=== PATIENT | female | born 1950 | race Caucasian/White ===

== ENCOUNTER 2018-07-03 06:09 | Inpatient (IN) | payer MEDICARE, OTHER, SELFPAY ==
[2018-06-26 15:30] VITALS: BMI 20.6
[2018-07-03] VITALS (15 sets, daily range): BP systolic 85–129; BP diastolic 52–78; PULSE 75–97; RESP 15–24; TEMP 36.2–36.9; O2SAT 94–99; BMI 20.6
--- NOTE | 2018-07-03 | DI.RAD.S_ITS ---
PROCEDURE: XR CERVICAL SPINE 2V OR 3V INDICATIONS: C4-5, C5-6, C6-7 ACDF TECHNIQUE: 2 intraoperative fluoroscopic view(s) of the cervical spine were acquired. COMPARISON: None. FINDINGS: Intraoperative fluoroscopic images of cervical spine shows anterior fusion of C4-C7 vertebral bodies. Alignment of cervical spine is anatomic. IMPRESSION: Fluoroscopy guidance was provided intraoperatively for anterior fusion of C4-C7 levels. Dictated by: Ibrahima Ochoa M.D. on 07/03/2018 at 13:53 Approved by: Ibrahima Ochoa M.D. on 07/03/2018 at 13:57
[2018-07-03] MEDS: LACTATED RINGERS 1,000 ML 42 ML IV ×2 (07:04→09:57)
--- NOTE | 2018-07-03 07:36 | PM.PREOP ---
Pre-operative Note Interval Note History & Physical reviewed/Exam performed by Physician: Yes Changes to H&P: No
--- NOTE | 2018-07-03 08:35 | SUR.OPER ---
Supine on padded OR bed, head on pillow, arm padded and tucked at side, legs uncrossed, safety belt at thigh, tape over blanket over lower legs .
[2018-07-03] MEDS: CEFAZOLIN 1 GM VIAL IV (08:44)
--- NOTE | 2018-07-03 10:18 | P.OP_ITS ---
Operative Date/Time/Diagnoses Date of procedure: 07/03/18 Time of procedure: 08:16 Pre-op diagnosis: 1. C4-5, C5-6, C6-7 spinal stenosis 2. C4-5, C5-6, C6-7 spondylosis with radiculopathy 3. Cervical spondylolisthesis Post-op diagnosis: same Procedure & Clinicians Procedure: 1. C4-5 C5-6 C6-7 anterior cervical diskectomy and fusion 2. C4-5 C5-6 C6-7 anterior interbody cage placement 3. C4-5 C5-6 C6-7 anterior instrumentation with plate and screw placement in C4 -C5-C6 and C7 vertebrae 4. Utilization of microsurgical technique and operating microscope Same procedure as scheduled: Yes Indications: Patient has been having chronic neck pain and worsening cervical radiculopathy. Patient failed multiple conservative management with worsening pain weakness and numbness in her upper extremity. Patient has been having difficulty performing activity of daily living. After discussing risks benefits of treatment options, patient elected proceed with surgery. Surgeon: Artem Wolfe Program Management Specialist: Casie Marin Click Yes if Unassisted: No Anesthesia Type: General Operative Notes Closure Type: primary Specimen(s): none sent Implants & Drains: Globus extend plate, PEEK cage Applied: catheter Estimated Blood Loss (mL): 50 Blood products transfused: none Procedure in detail: Patient was seen in the preoperative area. Risks and benefits of the surgery was discussed with the patient. Operative consent was obtained and placed in the chart. Patient was then taken to the operative room. Prophylactic antibiotic was given less than 0.5 hr prior to skin incision. General anesthesia was administered. Patient was placed into a supine position on her radiolucent table. Bilateral shoulders were taped down to allow proper C-arm imaging. Anterior cervical area was prepped and draped in a sterile fashion. Time-out was performed at this time. Using lateral C-arm imaging, the level between C4 and C7 was identified and marked on patient's neck. A oblique incision from midline towards medial border of sternocleidomastoid muscle was made. The platysma muscle was incised in line with skin incision. Metzenbaum scissor was used to develop the plane between the medial border of sternocleidomastoid d and the strap muscles medially. The carotid sheath and its contents were identified and protected behind the hand- held retractor during the entire case. The plane between the carotid sheath and strap muscles was developed with Metzenbaum scissors. Dissection was made down to the level of the anterior cervical fascia. Longus colli muscle was incised on the anterior aspect of vertebral bodies bilaterally from C4-C7. Spinal needle was placed into the C4-5 disc space and confirmed with lateral C-arm imaging. Using microsurgical technique and operative microscope, anterior cervical diskectomy was performed at C4-5 C5-6 and C6-7 level. This was done by removing the disc material, removing the anterior and posterior osteophytes posterior longitudinal ligaments along with performing bilateral foraminotomies at all 3 levels. Patient was found to have severe central and foraminal stenosis at all 3 levels. Patient's stenosis was fully decompressed after decompression was completed. After the diskectomy was completed, 3 anterior interbody cages were obtained. The cages were packed with globus via cell bone grafting material. One cage each along with the bone grafting material was then packed into the interbody spaces from C4-C7 with one cage into each interbody level. After the cages were placed, the anterior cervical plate was stabilized to the C4-C7 vertebrae using 2 screws at each each level. Total 8 screws were placed. After confirming placement of the hardware with AP and lateral C-arm imaging, the screws were locked into the plate using the locking mechanism and torque limiting screwdriver. After the hardware was placed and confirmed with AP and lateral C-arm imaging, the wound was irrigated with sterile normal saline. The platysma muscle and the subcutaneous tissue was closed with 2-0 Vicryl. The skin was closed with 4- 0Monocryl and Steri-Strips. Patient tolerated the procedure well. Patient was transferred recovery room in stable condition. There were no complications. Complications: none Condition: stable Disposition: PACU Plan for aftercare: Admit to inpatient hospital
[2018-07-03] MEDS: HYDROMORPHONE 1 MG INJ 0.2 MG IV ×3 (11:20→23:49)
[2018-07-03] MEDS: OXYCODONE IR 5 MG TABLET PO ×4 (12:10→23:50)
[2018-07-03] MEDS: hydrOXYzine pamoate 25 MG CAPSULE PO ×2 (12:11→19:31)
[2018-07-03] MEDS: SODIUM CHLORIDE 0.9% 1,000 ML 100 ML IV ×2 (12:12→20:49)
--- NOTE | 2018-07-03 12:47 | PC.NURSE ---
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
[2018-07-03] MEDS: SUCRALFATE 1 GM TABLET PO ×2 (15:46→19:33)
[2018-07-03] MEDS: CEFAZOLIN 1 GM/50 ML FROZ.PIGGY IV (17:44)
--- NOTE | 2018-07-03 17:59 | PT.IIE ---
Current Diagnoses Major depressive disorder, recurrent, unspecified (07/03/18) Other spondylosis with radiculopathy, cervical region (07/03/18) Spinal stenosis, cervical region (07/03/18) [facility] (current) use of opiate analgesic (07/03/18) Surgery Performed Operation Date: 07/03/18 07:45 Actual Procedures p C4-5, C5-6, C6-7 ACDF w/Anterior Instru. - Artem Wolfe MD Surgical History (Last Updated 06/26/18 @ 15:45 by Jaki Gramajo, RN) History of total right hip arthroplasty (Acute ~2008) Medical History (Last Updated 06/26/18 @ 15:56 by Jaki Gramajo, RN) Admission for breast augmentation (Acute) Arthritis (Acute) Bruises easily (Acute) Cataract fragments in right eye following surgery (Acute ~2016) Chronic prescription opiate use (Acute) Compression fracture of L2 vertebra (Acute) Detached retina, right (Acute ~2012) Osteoarthritis of cervical spine with myelopathy (Acute) 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) Osteoporosis (Acute) Peptic ulcer disease (Acute) Postmenopausal (Acute) Recurrent major depressive disorder (Acute) Restless leg syndrome (Acute) Physical Therapy Inpatient Evaluation/Re-Eval M1 PT/OT-IP Prior Functional Status Start: 07/03/18 12:35 Freq: NEEDED Status: Active Protocol: Document 07/03/18 17:00 (Rec: 07/03/18 17:59 [id number]) Medical Review Prior Functional Status Medical History Reviewed Yes Diet/Fluid Consistency Regular Communication no deficits noted Mobility and Gait Pt is an independent ambulator at home and community without AD. Activities of Daily Living and IADL's Pt is independent for ADLs and IADLs. She reports she was unable to hold a cup of water with her L hand before surgery due to severe neck pain. Social History Household Members spouse Living Arrangements House Number of Floors (Floors) One Floor Number of Stairs To Enter/Railing? 2 GOLDEN with B rails Home Environment Standard Height Toilet Walk in Shower Home Equipment Straight Cane Grab Bars Near Toilet Grab Bars In Shower Employment Status Retired Additional Social History Comment Pt lives with his in a 1 story home with 2 GOLDEN. Pt has 2 coleman retrivers. Pt's is a psychiatrist but he works from home so he will be her primary caregiver after d/c. Pt also reports she had R hip surgery before which causes her leg length discrepency who has to wear shoes with heel lift for amb. Pt does not use any AD for mobility. M2 PT-IP Current Condition Start: 07/03/18 12:35 Freq: NEEDED Status: Active Protocol: Document 07/03/18 17:00 (Rec: 07/03/18 17:59 [id number]) Physical Therapy Current Condition Current Condition Evaluation Date 07/03/18 Treatment Diagnosis C4-C7 ACDF, generalized muscle weakness Onset Date 07/03/18 Precautions Cervical Spine Precautions Soft Collar for Comfort Soft Collar at all Times Rigid Collar No Heavy Lifting Log Roll Weight Bearing Status Weight Bearing Status Weight Bear as Tolerated M3 PT-IP Subjective Start: 07/03/18 12:35 Freq: NEEDED Status: Active Protocol: Document 07/03/18 17:00 HH (Rec: 07/03/18 17:59 [id number]) Subjective Physical Therapy Visit Type Type Initial Evaluation Visit Start Time 17:00 Visit Stop Time 17:30 Total Visit Minutes 30 Notes Pt agreeable to mobilize with PT. RN reports pt has been OOB for bathroom transfer and hold to IV pole. 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 Patient Goals To return home once she is medically stable to receive outpatient PT for overall strengthening Therapy Pain Assessment Pain When Pain Assessed At Rest Pain Present Pain Present Pain Reported Location posterior neck Intensity 3 Scale Used Numeric (1 - 10) Description Aching Acute Pain Management Techniques Apply Cold Re-positioning Timing of Activity with Medications M4 PT-IP Mobility and Gait Start: 07/03/18 12:35 Freq: NEEDED Status: Active Protocol: Document 07/03/18 17:00 HH (Rec: 07/03/18 17:59 [id number]) PT-Bed Mobility Assessment Rolling Type of Rolling Log Rolling Roll to Right Level of Assist Standby Assistance 1 Person Assistance Supine to Sit Supine to Sit Standby Assistance 1 Person Assistance Head of Bed Elevated Sit to Supine Sit to Supine Standby Assistance 1 Person Assistance Head of Bed Elevated Bedrails Scooting Scooting to Edge of Bed Standby Assistance PT-Transfer Assessment Sit to and From Stand Sit to and from Stand Standby Assistance 1 Person Assistance Use of Upper Extremities Equipment Transfer Assistive Device Bed Rail Gait Belt Transfers Transfer Destination Bed Chair Transfer Technique Stand Step Pivot Transfer Ability Level of Assist Standby Assistance Comments Mobility Comments Pt uses IV pole for support. Pt demonstrates safe trasnfer techniques with stand step pivot from EOB to bedside chair without cues. Gait Assessment Gait Gait Assistance Required: Standby Assistance 1 Person Assist Distance (Feet) 400 Able to Maintain Weight Bearing Status Yes During Gait Assistive Devices Assistive Device Gait Belt Orthotic/Prosthetic Devices or Brace: Yes Gait Deviations General Gait Pattern Within Normal Limits Antalgic Factors Limiting Gait Function Factors Limiting Gait Function Decreased Activity Tolerance Decreased Strength Pain Comments Gait Comments Pt presents R hip drop and L hip hike during gait training due to preexisted LLD from her R hip surgery. Pt reports she used to wear shoes with orthotic heel lift. However, pt did not bring her orthotic to the hospital. Pt amb with R UE support on IV pole x 400 feet from bedside chair to end of the hallway. Pt did not show signs of distress and LOB but c/o dry mouth. Stair Climbing Assessment Evaluation Level of Assist On Stairs Standby Assistance Devices Stair Climbing Assistive Devices Left Railing Right Railing Technique/Endurance Stair Climbing Direction Ascend and Descend Stair Climbing Technique Step Over Step Number of Steps Climbed 3 Query Text: Stair Climbing Set # Repetitions (reps) 3 Comments Stair Climbing Comments pt carlin very well without signs of LOB and acute distress. PT-Balance Assessment Sitting Balance and Reactions Static Sitting Balance Ability Normal Dynamic Sitting Balance Ability Normal Standing Balance and Reactions Static Standing Balance Ability Normal Dynamic Standing Balance Ability Normal M5 PT-IP Objective Assessments Start: 07/03/18 12:35 Freq: NEEDED Status: Active Protocol: Document 07/03/18 17:00 (Rec: 07/03/18 17:59 [id number]) Orientation Orientation/Cognition Level of Alertness Alert Orientation Name Age Birthday Month Date Year Day of Week Place Situation Language Function Ability No Deficits Noted Safety Awareness Understands Safety Issues Memory Description No Deficits Noted Gross Range of Motion Upper Extremity ROM Assessment Within Functional Limits Lower Extremity ROM Assessment Within Functional Limits Strength Upper Extremity Strength Assessment Within Functional Limits Lower Extremity Strength Assessment Within Functional Limits Comments Strength Comments 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+/5 Coordination Assessment Gross Coordination Gross Coordination WNL Sensation Assessment Sensation Gross Sensation WNL Light Touch Intact Proprioception (Position) Intact Muscle Tone Muscle Tone WNL Yes M6 PT-IP Treatment Start: 07/03/18 12:35 Freq: NEEDED Status: Active Protocol: Document 07/03/18 17:00 HH (Rec: 07/03/18 17:59 [id number]) Physical Therapy Treatment Education Education Provided Precautions Weight Bearing Status Post-Op Packet Safety Brace Education [place] Patient Caregiver Other Treatments Other Treatment Performed Review of post op precautions M7 PT-IP Assessment and Plan Start: 07/03/18 12:35 Freq: NEEDED Status: Active Protocol: Document 07/03/18 17:00 HH (Rec: 07/03/18 17:59 [id number]) PT Summary Assessment and Plan Potential Rehabilitation Potential Excellent Status of Condition at Evaluation Stable Summary Impairments Pain ROM Strength Assessment Summary Pt is a pleasant 67 yo female post op C4-C7 ACDF day 1. Pt has been getting OOB with nursing staff before PT assessment. Pt denies numbness , tingling and raditing pain to his L arm. 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 Pt regains full ROM of B UE and strength after sx. Also , Pt amb from chair to end of hallway followed by stair climbing with the use of IV pole for support. Pt carlin tx well without signs of distress and LOB. In my professional opinion, recommend d/c home with assistance and outpatient PT to cont post op protocol and overall strengthening. Goals Bed Mobility Goal Independent Transfer Goal Independent Gait Goal Independent Gait Distance 500 Other Goals amb without AD Days to Meet Goals 3 Frequency of Treatment Frequency Of Treatment Twice a Day Treatment Plan Physical Therapy Treatment Plan Bed Mobility Training Transfer Training Gait Training Therapeutic Exercise Balance Retraining Post Op Education Discharge Planning Hot or Cold Pack Other Recommendations and Next Treatment amb without AD Focus stair training cont practice log roll bed mob Recommendations To Nursing Amount of Assist Needed Standby Assistance 1 Person Assist Discharge Recommendations PT Discharge Recommendations Home with Assistance Outpatient PT Other Discharge Recommendations Pt's will be her primary caregiver after d/c
[2018-07-03] MEDS: DOCUSATE 100 MG CAPSULE PO (19:32)
[2018-07-03] MEDS: buPROPion 100 MG TABLET PO (19:32)
[2018-07-03] MEDS: SENNOSIDES 8.6 MG TABLET 17.2 MG PO (19:34)
[2018-07-03] MEDS: ROPINIROLE 1 MG TABLET 5 MG PO (19:34)
[2018-07-03] MEDS: PANTOPRAZOLE 40 MG TABLET PO (19:34)
[2018-07-03] MEDS: SERTRALINE 50 MG TABLET 100 MG PO (19:35)
--- NOTE | 2018-07-03 22:32 | CM.MNRNOTE ---
Shift note: Anaila is A&Ox3, VS stable. 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 This low BP was taken approx 1 hr after pt medicated with oxycodone, vistaril & tizanadine for c/o neck pain. Approx 20 minutes later I went in room & took BP 116/63. She is pale but denies dizziness with movement or other symptoms. Denies nausea. RA oxygen 97% Reports good pain relief from pain meds & ice pack. Anterior neck drsg remains CDI. Wearing collar most of evening, did take off for 2 hours to apply ice pack to back of neck which she said 'helped. Voiding with no reported difficulty. IVF infusing to R wrist with no difficulty, IV site patent w/no redness or swelling. IV antibiotic infused per schedule. Ambulated in hallway with PT. She expressed to me that I called earlier because I needed to go to the bathroom & I waited & waited but nobody came, I apologized to her & told her that we may have been busy with other patients as it is a busy night. I asked if she had any other concerns, she said I didn't eat much earlier, pudding, yogurt and fruit cup given, as well as hot tea per her request. Assisted her to reposition in bed with neck roll behind head. She c/o feeling cold and I applied warm blanket. Now visiting with her spouse at bedside.
[2018-07-04] VITALS (10 sets, daily range): BP systolic 106–131; BP diastolic 60–92; PULSE 75–86; RESP 16–18; TEMP 36.6–36.9; O2SAT 92–99
[2018-07-04] MEDS: CEFAZOLIN 1 GM/50 ML FROZ.PIGGY IV (01:03)
[2018-07-04] MEDS: OXYCODONE IR 5 MG TABLET PO ×6 (04:27→23:40)
[2018-07-04 06:41] LABS: Hemoglobin 6.5 g/dL (12.0-16.0)
[2018-07-04 07:08] LABS: Hematocrit 19.2 % (36-46); Hemoglobin 6.4 g/dL (12.0-16.0)
[2018-07-04] MEDS: SODIUM CHLORIDE 0.9% 1,000 ML 100 ML IV (07:09)
--- NOTE | 2018-07-04 07:44 | PC.NURSE ---
0630 notified by lab of critical h/h. paged and notified. New orders placed for repeat h/h and type and screen. Discussed finding with pt so that she understood need for additional lab draw. said that rounding MD will follow up and no need to call and report lab.
[2018-07-04] MEDS: buPROPion 100 MG TABLET PO ×2 (07:58→20:47)
[2018-07-04] MEDS: DOCUSATE 100 MG CAPSULE PO ×2 (07:59→20:47)
[2018-07-04] MEDS: SERTRALINE 50 MG TABLET 100 MG PO ×2 (08:00→20:49)
[2018-07-04] MEDS: SUCRALFATE 1 GM TABLET PO ×4 (08:00→20:47)
[2018-07-04] MEDS: PANTOPRAZOLE 40 MG TABLET PO ×2 (08:00→20:47)
--- NOTE | 2018-07-04 08:24 | PM.PNPO.1 ---
Subjective Date Patient Seen: 07/04/18 Time Patient Seen: 08:24 Interval history: Hospital day 2, postop day 1 following C4-5 through C6-7 ACDF, cage, anterior plate by Dr. Wolfe. Patient remained stable postoperatively. She was up with therapy yesterday and did well. Has been feeling lightheaded this morning. Preoperative arm symptoms have resolved since surgery. Taking oxycodone for pain. Lab this morning noted H&H 6.4/19.2. Dr. Rodriguez was called and type and screen was ordered. Exam Vital Signs (past 8 hours): - 07/04/18 04:00 Temperature 98.0 F Pulse Rate 80 Respiratory Rate 16 Blood Pressure 131/77 Pulse Oximetry 99 Oxygen Delivery Method Room Air Oxygen Flow Rate 0 Narrative Exam Narrative: Alert, oriented no acute distress resting in bed. Neck. Soft collar in place. Dressing to left anterior neck is dry without drainage or inflammation. Arms. Tumbler Machine Operator strong and equal. Pulses and sensation hand symmetrical. Elbow flexion and extension and shoulder AB duction strong equal. Objective Labs Result Diagrams: 07/04/18 06:50 Labs: Laboratory Results - last 24 hr 07/04/18 07/04/18 07/04/18 05:28 06:50 06:50 Hgb 6.5 L* 6.4 L* Hct 20.0 L* 19.2 L* Blood Type A Positive Antibody Screen Negative Crossmatch See Detail Assessment & Plan Post-op (1) Postoperative anemia: Current Visit: Yes Status: Acute Postoperative Procedures Operation Date: 07/03/18 07:45 Actual Procedures Side Surgeon p C4-5, C5-6, C6-7 ACDF w/Anterior Instru. Artem Wolfe MD Plan: Patient will receive 2 units packed red blood cells. There for further improvement. We will plan to have patient remained overnight to make sure she is stable possible discharge home tomorrow if stable. Will recheck H&H 1 hr after blood transfusion and recheck again in the morning.
--- NOTE | 2018-07-04 10:35 | OT.IP.TRT ---
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 - Artem Wolfe MD Occupational Therapy Treatment Note M3 OT- IP Subjective and Pain Start: 07/04/18 10:30 Freq: Status: Active Protocol: Document 07/04/18 10:30 [facility] (Rec: 07/04/18 10:35 [facility] [id number]) OT- Subjective Occupational Therapy Visit Type Type Administrative Note Notes Pt 6.4 hgb, AND 19.2 hct and looking to get transfusion today, therefore just able to give pt information regarding ADl's after cervical surgery and soft collar care. To touch base with pt again tomorrow.
--- NOTE | 2018-07-04 11:46 | PT.IPTN ---
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 - Artem Wolfe MD Physical Therapy Treatment Note M2 PT-IP Current Condition Start: 07/03/18 12:35 Freq: NEEDED Status: Active Protocol: Document 07/03/18 17:00 HH (Rec: 07/03/18 17:59 HH [id number]) Physical Therapy Current Condition Current Condition Evaluation Date 07/03/18 Treatment Diagnosis C4-C7 ACDF, generalized muscle weakness Onset Date 07/03/18 Precautions Cervical Spine Precautions Soft Collar for Comfort Soft Collar at all Times Rigid Collar No Heavy Lifting Log Roll Weight Bearing Status Weight Bearing Status Weight Bear as Tolerated M3 PT-IP Subjective Start: 07/03/18 12:35 Freq: NEEDED Status: Active Protocol: Document 07/04/18 11:45 AB (Rec: 07/04/18 11:46 AB [id number]) Subjective Physical Therapy Visit Type Notes pt on hold for PT today due to Hgb of 6.4 and Hct of 19.2. pt currently receiving transfusion per nurse and will be done ~ 4pm later today. Lab work will be done an hour after. will f/u.
[2018-07-04] MEDS: hydrOXYzine pamoate 25 MG CAPSULE PO ×3 (12:39→20:47)
[2018-07-04] MEDS: SUMAtriptan 25 MG TABLET 50 MG PO (13:29)
--- NOTE | 2018-07-04 15:28 | PT.IPTN ---
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 - Artem Wolfe MD Physical Therapy Treatment Note M2 PT-IP Current Condition Start: 07/03/18 12:35 Freq: NEEDED Status: Active Protocol: Document 07/03/18 17:00 HH (Rec: 07/03/18 17:59 HH [id number]) Physical Therapy Current Condition Current Condition Evaluation Date 07/03/18 Treatment Diagnosis C4-C7 ACDF, generalized muscle weakness Onset Date 07/03/18 Precautions Cervical Spine Precautions Soft Collar for Comfort Soft Collar at all Times Rigid Collar No Heavy Lifting Log Roll Weight Bearing Status Weight Bearing Status Weight Bear as Tolerated M3 PT-IP Subjective Start: 07/03/18 12:35 Freq: NEEDED Status: Active Protocol: Document 07/04/18 15:28 AB (Rec: 07/04/18 16:23 AB [id number]) Subjective Physical Therapy Visit Type Notes pt still receiving transfusion . will f/u tomorrow.
--- NOTE | 2018-07-04 15:51 | CM.DANOTE ---
DCP/continued: Reviewed chart. Patient is a 67yr old female admitted [facility] for cervical surgery performed on 07-03-[address] Wolfe. PCP is Dr. Osuna on [address]. Primary payor is 1)Medicare 2)Nancy. Met with patient explained CM/SW role. Patient reports that she hopes to go home tomorrow 07-05-18. At this time patient does not anticipate any d/c planning needs. Patient resides with supportive spouse/Jacob in 1 story home on [address]. P: Home when stable. CM team to continue to follow for needs. JASBIR Rascon Discharge Planning/Care Management CM Discharge Assessment Start: 07/04/18 15:48 Freq: Status: Active Protocol: Document 07/04/18 15:48 KJS (Rec: 07/04/18 15:50 KJS [id number]) Discharge Planning Assessment Assigned Supervisor [place] JASBIR Rascon Contact Information Jacob Givens (spouse) [phone] Advance Directives? No History Provided By Patient Significant Other Has Patient been admitted in last 30 No days? Prior Living Arrangements House Household Members spouse Type of transporation used prior to Drives own vehicle admit Independent with ADL's Yes Is patient alert and oriented? Yes Caregiver for Another No Patient/Family Preference OP PT Therapy Barriers to Discharge No Discharge Plan Home Transportation Arrangement Family to provide transport. Referrals Initiated None needed Whiteboard Updated in Patient Room with Yes name and ext. 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 No Height 157.48 cm Weight 51.256 kg Body Mass Index (BMI) 20.6 Hearing Ability Normal Visual Impairment Partially Limited Visual Assist Glasses Dentition Type Teeth, Natural Present Barriers to Learning Visual Other Aids No Hx Anesthesia Reactions No Hx Family Anesthesia Reaction No Hx Malignant Hyperthermia No Hx Blood Transfusions Yes: R/T ANTONINA 2008 Hx Blood Transfusion Reaction No Anesthesia Review Requested No Boss Dyer No alcohol intake current alcohol intake frequency holidays/special occasions only Smoking Status Never smoker Substance Use Type opiates prescription drug Pain Present Pain Reported Comment Neck, low back, right hip - chronic Musculoskeletal Symptoms Abnormal Gait Back Pain Difficulty Walking Muscle Weakness Neck Pain Numbness Radiating Pain into Limb Tingling Tremors History of Falling (Recent or History of Yes ) Patient is completely paralyzed or No completely immobile Ambulatory Aid Crutches/cane/walker Prosthesis or Orthotic Device Cane Gait/Transferring Weak Mental Status Oriented to own ability Comment tremors/numbness/pain R/T cervical neck L>R; RLE weakness - occas cane use Is patient on oxygen? No Does patient have GRACE/SOB No Hx Sleep Apnea No Will Bring CPAP/BIPAP DOS No Currently Taking a Beta Darryl No Can You Climb a Flight of Stairs Without Yes SOB Hx Chest Pain No Hx SOB No Hx Syncope or Dizziness No Anti-Coagulant Therapy No Has a Enterprise Business Architect No Cardiac Testing No Hx Pacemaker/ICD No Pacemaker Rep Required? No Cardiac Clearance Received Not Applicable Diet Type At Home Regular dysphagia Yes Bladder Pattern Incontinent, Stress Urgency Urinary Catheter Present No Hx Urinary Self Catheterization No Comment Wears a pad sometimes Diabetes No Patient No Lactating No Hx Drug Resistant Organism No Presence of External or Internal Medical Yes: R ANTONINA Devices Have you traveled outside the [facility] States in the last 30 days? Marital Status Lives With spouse Prior Living Arrangements House Number of Floors (Floors) Two Floors Number of Stairs To Enter/Railing? Can stay on the main level post-op; 2 stairs into house w /rail Support System Friend(s) Spouse Does the Patient Have Assistance After Yes Surgery Patient Discharge Plan Description Return Home Feels Safe in Current Environment Yes Been Physically Hurt or Threatened By a No Person in Current Environment Do you have thoughts of harming yourself None or others? Are you currently considering suicide? No Do you have a plan to hurt yourself or No Plan others? Do You Have Any Spiritual Beliefs That No May Affect Your HC Choices? Do You Have Any Cultural Practices That No May Affect Your HC Choices? Spiritual Referral None Who Can We Speak to About Patient's Care Friends & Family Identifying Code for Release of Patient Declined Information Health Care Proxy/Next of Kin Jacob Givens Health Care Proxy Emergency Contact Name Jacob Givens Emergency Contact Advance Directives? No: Mailed to pt/spouse Power of Elementary Secretary No PAC Instructions Assistance for 24 hours post- op Do not shave/clip surgical site Durable medical equipment Medications to take/avoid Nasal antibiotic No ETOH/petroleum product on skin DOS NPO Ortho class Post-op transportation Pre-op antibiotic Pre-surgical wash Sensory aids Sturdy shoes/comfortable clothes Do not bring valuables and remove jewelry Comment Check-in [id number]
--- NOTE | 2018-07-04 16:17 | PC.NURSE ---
Day Shift- Pt A&OX4, able to make needs known using call light. Left anterior neck dressing CDI, pt has soft collar in place most of shift, removed for lunch. Ice pack to posterior neck. Oxycodone prn given at 0800/1240 with good effect. Pt c/o headache/migraine throughout morning. Nasim Robles,PAC called at order clarification for prn Imitrex rec'd and med given at 1330. with good effect. IVF paused at 1030 to right FA PIV in order to transfuse blood. Pt verbally agrees to blood transfusion and signed consent, risks and benefits discussed. Pt stated having a blood transfusion approx 10 years ago after an ortho surgery. No history of reaction. Blood transfusions administered per hospital policy and protocol. 1st unit RBC's started at 1034 slowly and increased rate at 1047, and ended at 1340. VSS throughout and pt asymptomatic, pt stated feeling a little better. 2nd unit RBC's started at 1355 slowly and increased rate at 1430, VSS at 15min post start check, 2nd unit continues to transfuse at shift change, pt remains asymptomatic. Pt has no active bleeding noted, urine clear, no BM, passing flatus, no increase abd size and anterior neck dressing remained CDI throughout shift.
[2018-07-04 19:10] LABS: Hematocrit 29.4 % (36-46); Hemoglobin 9.8 g/dL (12.0-16.0)
[2018-07-04] MEDS: ACETAMINOPHEN 325 MG TABLET 650 MG PO (20:47)
[2018-07-04] MEDS: ROPINIROLE 1 MG TABLET 5 MG PO (20:47)
[2018-07-04] MEDS: SENNOSIDES 8.6 MG TABLET 17.2 MG PO (20:49)
[2018-07-04] MEDS: SODIUM CHLORIDE 0.9% FLUSH 10 ML IV (20:49)
[2018-07-05 00:29] VITALS: BP 138/72; PULSE 83; RESP 16; TEMP 37.1; O2SAT 94
[2018-07-05] MEDS: OXYCODONE IR 5 MG TABLET PO ×3 (04:54→11:46)
[2018-07-05] MEDS: SUMAtriptan 25 MG TABLET 50 MG PO (05:04)
--- NOTE | 2018-07-05 05:16 | PC.NURSE ---
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 Has some soreness to throat with swallow but is able to swallow without coughing. Dressing to anterior left side of neck, CDI. CMS+. Pt up to bathroom SBA, denies dizziness. Bed alarm on for safety.
[2018-07-05 05:27] LABS: Hemoglobin 9.7 g/dL (12.0-16.0)
[2018-07-05 06:39] VITALS: BP 140/77; PULSE 76; RESP 16; TEMP 36.9; O2SAT 95
--- NOTE | 2018-07-05 08:30 | PM.DS.1 ---
History of Present Illness Date Patient Seen: 07/05/18 Time Patient Seen: 08:30 Chief complaint: [id number] Narrative: Hospital day 3, postop day 2 following C4-5 through C6-7 ACDF, cage, anterior plate by Dr. Wolfe. Patient states he is feeling better today. She did receive 2 units of packed RBC yesterday. Blood count has significantly increased. Using oxycodone for pain. Swallowing has been improving but still having some discomfort. No arm symptoms. She has not been up with physical therapy yet. She does feel like she would like to go home today. Discharge Providers Date of admission: 07/03/18 06:09 Consults: 06/26/18 16:01 Consult to Eyewear Manufacturing Tech Routine Comment: Rx for chronic pain, depression R/T daughter's carmen 07/03/18 11:18 Consult to Occupational Therapy Evaluate & Treat Comment: Physician Instructions: Evaluate and treat Consult to Physical Therapy Evaluate & Treat Comment: Physician Instructions: Evaluate and Treat Discharge provider: Nasim Juarez PA-C Discharge Date: 07/05/18 Summary Discharge Diagnosis: Status post C4-5 through C6-7 ACDF, cage, anterior plate. Hospital Course: Patient brought to hospital on 07/03/2018 for above-noted surgery. She remained stable orthopedically. She did develop significant postoperative anemia. She received 2 units of packed RBC on postop day 1. She had significant improvement and lab work. Discharge home on postop day 2 after cleared by PT. Status at Discharge Cognitive/behavioral status at discharge: Alert oriented no acute distress. Overall status at discharge: patient is progressing back to baseline Time Spent with Patient Less than 30 minutes Exam Vital Signs (past 8 hours): - 07/05/18 06:39 Temperature 98.5 F Pulse Rate 76 Respiratory Rate 16 Blood Pressure 140/77 Pulse Oximetry 95 Oxygen Delivery Method Room Air Oxygen Flow Rate 0 Narrative Exam Narrative: Neck. Dressing to left anterior neck is dry without drainage or inflammation. Soft collar in place. Arms. Electric Cutter Operator strong and equal. Pulses and sensation hand symmetrical. Objective Labs Result Diagrams: 07/05/18 04:53 Labs: Laboratory Results - last 24 hr 07/04/18 07/04/18 07/05/18 06:50 19:05 04:53 Hgb 9.8 L 9.7 L Hct 29.4 L 29.0 L Blood Type A Positive Antibody Screen Negative Crossmatch See Detail Discharge Plan Discharge Plan Patient Disposition: Home Discharge comment: Discharge home after cleared by PT. Discharge Med Rec/Prescriptions Prescriptions: New acetaminophen 325 mg Tablet 650 mg PO Q6HR PRN (Reason: Pain, Mild (1-3)) Qty: 30 RF: 0 ascorbic acid (vitamin C) [Vitamin C] 500 mg Tablet 500 mg PO BID Qty: 60 RF: 0 docusate sodium 100 mg Capsule 100 mg PO BID Qty: 60 RF: 0 oxycodone 5 mg Tablet 5 mg PO Q3HR PRN (Reason: Pain, Moderate (4-6)) Qty: 30 RF: 0 hydroxyzine pamoate 25 mg Capsule 25 mg PO Q4HR PRN (Reason: Nausea And Vomiting) 30 Days RF: 0 ferrous gluconate 324 mg (38 mg iron) Tablet 324 mg PO BID Qty: 60 RF: 0 Continue tizanidine 2 mg Tablet 2 mg PO BEDTIME PRN (Reason: Muscle spasms) RF: 0 meloxicam 15 mg Tablet 15 mg PO DAILY RF: 0 sucralfate 1 gram Tablet 1 g PO QID RF: 0 sumatriptan succinate 25 mg Tablet 25 mg PO PRN PRN (Reason: Migraine Headache) RF: 0 alendronate [Fosamax] 70 mg Tablet 70 mg PO QWEEK RF: 0 sertraline 100 mg Tablet 100 mg PO BID RF: 0 bupropion HCl 100 mg Tablet 100 mg PO BID RF: 0 omeprazole 20 mg Capsule,Delayed Release(Dr/Ec) 40 mg PO BID RF: 0 gabapentin 100 mg Capsule 100 mg PO BEDTIME PRN (Reason: Nerve Pain) RF: 0 ropinirole 5 mg Tablet 5 mg PO BEDTIME RF: 0 Discontinued hydrocodone-acetaminophen 10-325 mg Tablet 1 tab PO BID PRN (Reason: severe pain) RF: 0 Provider Discharge Instructions Diet: Diet as Tolerated Diet comment: Use mostly liquid and soft foods for the next 1-2 weeks. Activity: Ambulate as tolerated. Avoid excessive head movement. Use soft cervical collar for the next 1-2 weeks. Other treatments: Take iron and vitamin C twice daily for the next 4 weeks. Skin/Wound/Dressing Care Report to your healthcare provider any signs of infection, such as:: chills, fever, night sweats, increased pain, unusual drainage and unusual redness Dressing: Keep dressing clean and dry. Visit Report/Discharge Packet Instructions: DI for Blood Transfusion, How to Prevent Falls, DI for Anterior Cervical Discectomy and Fusion Visit Report Forms: Stroke Signs & Symptoms Discharge Data Attending Provider: Artem Wolfe Admit Date/Time: 07/03/18 06:09
[2018-07-05] MEDS: DOCUSATE 100 MG CAPSULE PO (08:31)
[2018-07-05] MEDS: SUCRALFATE 1 GM TABLET PO (08:31)
[2018-07-05] MEDS: buPROPion 100 MG TABLET PO (08:31)
[2018-07-05] MEDS: PANTOPRAZOLE 40 MG TABLET PO (08:31)
[2018-07-05] MEDS: SERTRALINE 50 MG TABLET 100 MG PO (08:31)
[2018-07-05] MEDS: SODIUM CHLORIDE 0.9% FLUSH 10 ML IV (08:31)
[2018-07-05] MEDS: hydrOXYzine pamoate 25 MG CAPSULE PO (08:33)
--- NOTE | 2018-07-05 08:58 | OT.IP.TRT ---
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 - Artem Wolfe MD Occupational Therapy Treatment Note M3 OT- IP Subjective and Pain Start: 07/04/18 10:30 Freq: Status: Active Protocol: Document 07/05/18 08:57 [facility] (Rec: 07/05/18 08:58 [facility] [id number]) OT- Subjective Occupational Therapy Visit Type Type Administrative Note Notes Touched base with pt regarding OT needs and pt states doing well and to help at home. Pt still complaining of throat soreness from sugery and trouble swallowing. 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 Pt discharged from OT needs.
[2018-07-05 09:00] VITALS: BP 144/84; PULSE 86; RESP 16; TEMP 37.1; O2SAT 95
--- NOTE | 2018-07-05 09:39 | PT.IPTN ---
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 - Artem Wolfe MD Physical Therapy Treatment Note M2 PT-IP Current Condition Start: 07/03/18 12:35 Freq: NEEDED Status: Active Protocol: Document 07/03/18 17:00 HH (Rec: 07/03/18 17:59 HH [id number]) Physical Therapy Current Condition Current Condition Evaluation Date 07/03/18 Treatment Diagnosis C4-C7 ACDF, generalized muscle weakness Onset Date 07/03/18 Precautions Cervical Spine Precautions Soft Collar for Comfort Soft Collar at all Times Rigid Collar No Heavy Lifting Log Roll Weight Bearing Status Weight Bearing Status Weight Bear as Tolerated M3 PT-IP Subjective Start: 07/03/18 12:35 Freq: NEEDED Status: Active Protocol: Document 07/05/18 09:01 LJ (Rec: 07/05/18 09:36 LJ [email or web address]) Subjective Physical Therapy Visit Type Type Treatment Note Visit Start Time 09:01 Visit Stop Time 09:16 Total Visit Minutes 15 Notes Pt wanting to get up and ambulate M4 PT-IP Mobility and Gait Start: 07/03/18 12:35 Freq: NEEDED Status: Active Protocol: Document 07/05/18 09:01 LJ (Rec: 07/05/18 09:36 LJ [id number]) PT-Bed Mobility Assessment Rolling Type of Rolling Log Rolling Roll to Right Level of Assist Standby Assistance Supine to Sit Supine to Sit Standby Assistance 1 Person Assistance Head of Bed Elevated Sit to Supine Sit to Supine Standby Assistance Head of Bed Elevated Scooting Scooting to Edge of Bed Standby Assistance PT-Transfer Assessment Sit to and From Stand Sit to and from Stand Standby Assistance Equipment Transfer Assistive Device None Transfers Transfer Destination Bed Transfer Technique Stand Step Pivot Gait Assessment Gait Gait Assistance Required: Standby Assistance Assistive Devices Assistive Device None Gait Deviations General Gait Pattern Within Normal Limits Factors Limiting Gait Function Factors Limiting Gait Function Decreased Activity Tolerance Decreased Strength Pain Comments Gait Comments Pt demonstrates ability to self-correcting posture during gait after verbal cues. Stair Climbing Assessment Evaluation Level of Assist On Stairs Standby Assistance Devices Stair Climbing Assistive Devices Left Railing Right Railing Technique/Endurance Stair Climbing Direction Ascend and Descend Stair Climbing Technique Step Over Step Number of Steps Climbed 3 Query Text: Stair Climbing Set # Repetitions (reps) 1 Comments Stair Climbing Comments pt carlin very well without signs of LOB and acute distress. M5 PT-IP Objective Assessments Start: 07/03/18 12:35 Freq: NEEDED Status: Active Protocol: Document 07/03/18 17:00 HH (Rec: 07/03/18 17:59 HH [id number]) Orientation Orientation/Cognition Level of Alertness Alert Orientation Name Age Birthday Month Date Year Day of Week Place Situation Language Function Ability No Deficits Noted Safety Awareness Understands Safety Issues Memory Description No Deficits Noted Gross Range of Motion Upper Extremity ROM Assessment Within Functional Limits Lower Extremity ROM Assessment Within Functional Limits Strength Upper Extremity Strength Assessment Within Functional Limits Lower Extremity Strength Assessment Within Functional Limits Comments Strength Comments 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 and strength 4+/5 Coordination Assessment Gross Coordination Gross Coordination WNL Sensation Assessment Sensation Gross Sensation WNL Light Touch Intact Proprioception (Position) Intact Muscle Tone Muscle Tone WNL Yes M6 PT-IP Treatment Start: 07/03/18 12:35 Freq: NEEDED Status: Active Protocol: Document 07/05/18 09:01 LJ (Rec: 07/05/18 09:36 LJ [email or web address]) Physical Therapy Treatment Education Education Provided Precautions Safety Other Treatments Other Treatment Performed pelvic tilts, glute squeezes, shoulder rolls, chin retraction, posture training M7 PT-IP Assessment and Plan Start: 07/03/18 12:35 Freq: NEEDED Status: Active Protocol: Document 07/05/18 09:36 LJ (Rec: 07/05/18 09:39 LJ [email or web address]) PT Summary Assessment and Plan Summary Assessment Summary Pt has met all goals to return home with assistance. Given HEP of abdomoinal bracing with pelvic tilts and glute squeezes for core stabilization; shoulder retraction and rolls. Goals Bed Mobility Goal Independent Transfer Goal Independent Gait Goal Independent Gait Distance 500 Other Goals amb without AD Days to Meet Goals 3 Frequency of Treatment Frequency Of Treatment Twice a Day Treatment Plan Physical Therapy Treatment Plan Transfer Training Therapeutic Exercise Balance Retraining Post Op Education Discharge Planning Hot or Cold Pack
--- NOTE | 2018-07-05 11:10 | PC.NURSE ---
Addendum entered by Shaila Currie R.N. 07/05/18 13:24: Reviewed written and verbal discharge instructions from discharge summary packet. All questions answered, follow up appointment confirmed. Pt states is ready for discharge. Reviewed S/S of infection, dressing care, medications, and prevention of falls. Pt left unit via wheelchair at 1324 with all belongings, pt in no distress. Pt's Jacob present for discharge instructions and to drive pt home. Original Note: Day Shift- Pt A&OX4, states feeling overall better than yesterday, denies light headedness, dizziness with ambulation. Steady gait with SBA Anterior neck gauze and tegaderm dressing CDI, has soft collar in place. pain 5/10 comfortable, better than yesterday. PRN oxycodone and vistaril given this AM with good effect. States feeling better after PT session this AM. Plan for discharge around 1300 today, pt's Jacob will come to machine pecan picker pt.
[2018-07-05] MEDS: ASCORBIC ACID 500 MG TABLET PO (11:47)
[2018-07-05] MEDS: FERROUS GLUCONATE 324 MG TABLET PO (11:47)
== END 2018-07-05 13:24 | disposition home or self-care (01) | DRG 472 ==
PROVIDERS: Orthopaedic Surgery; Physician Assistant; Admitting Provider Orthopaedic Surgery Orthopaedic Surgery of the Spine; Visit Provider Orthopaedic Surgery Orthopaedic Surgery of the Spine
PROC: 0RG20A0 Fusion of 2 or more Cervical Vertebral Joints with Interbody Fusion Device, Anterior Approach, Anterior Column, Open Approach (ICD-10-PCS; principal; 2018-07-03 07:45)
DX: M47.22 Other spondylosis with radiculopathy, cervical region (principal); D62 Acute posthemorrhagic anemia; M48.02 Spinal stenosis, cervical region; F32.9 Major depressive disorder, single episode, unspecified
CPT/HCPCS: 36415; 36430; 72040; 76000; 85014; 85018; 86850; 86900; 86901; 97116; 97161; 97530; C1776; P9016; J0330; J0690; J1100; J1170; J2250; J2405; J2704; J3010

== ENCOUNTER 2019-07-13 06:14 | Inpatient (IN) | payer MEDICARE, OTHER, SELFPAY ==
[2018-07-03 12:17] VITALS: BMI 20.6
[2019-06-29 14:00] VITALS: BMI 24.7
[2019-07-13] VITALS (12 sets, daily range): BP systolic 83–130; BP diastolic 49–78; PULSE 69–90; RESP 10–16; TEMP 36.3–36.8; O2SAT 93–100; BMI 25.0
--- NOTE | 2019-07-13 | DI.RAD.S_ITS ---
PROCEDURE: XR LUMBAR SPINE 2-3V INDICATIONS: L3-4, L4-5, L5-S1 TLIF, FUSED FROM L2 TO S1 TECHNIQUE: Fluoroscopic images were obtained during an operative procedure and submitted for interpretation following the completion of the procedure. [facility] 3 [facility]IEWS, 04/20/2019, 13:25. FINDINGS: These fluoroscopic images were performed for intraoperative localization. On these images, there is placement of lumbosacral fixation hardware L2-S1. Disc spacers are seen at L3-L4, L4-L5, and L5-S1. Fixation rods are seen. No findings of hardware failure or hardware loosening are seen. Please correlate with intraoperative findings. IMPRESSION: Normal intraoperative examination. Dictated by: Andrew Robertson M.D. on 07/13/2019 at 12:38 Approved by: Andrew Robertson M.D. on 07/13/2019 at 12:40
[2019-07-13] MEDS: LACTATED RINGERS 1,000 ML 42 ML IV ×3 (07:07→12:30)
[2019-07-13] MEDS: CEFAZOLIN 2 GM/100 ML FROZ.PIGGY IV ×4 (07:55→23:45)
--- NOTE | 2019-07-13 08:40 | SUR.OPER ---
Prone on spine table, head in foam head support, padded chest and pelvic supports, gel pad at knees, lower legs supported by pillows; nipples, genitalia and toes free of pressure, arms secured on foam padded arm boards at <90 degrees abduction. Tape over blanket at thigh secured to table.
[2019-07-13] MEDS: ACETAMINOPHEN IV 1,000 MG/100 ML VIAL 400 MG IV (08:46)
[2019-07-13] MEDS: BUPIVACAINE 0.25% W/ EPI 30 ML VIAL INJ (08:55)
[2019-07-13] MEDS: BUPIVACAINE LIPOSOME 266 MG/20 ML VIAL INJ (08:56)
--- NOTE | 2019-07-13 13:52 | P.OP_ITS ---
Operative Date/Time/Diagnoses Date of procedure: 07/13/19 Time of procedure: 08:12 Pre-op diagnosis: 1. Lumbar scoliosis 2. Lumbar spondylolisthesis 3. Lumbar spinal stenosis with radiculopathy 4. Lumbar spondylosis with radiculopathy Post-op diagnosis: same Procedure & Clinicians Procedure: 1. L3-4, L4-5, L5-S1 Postero-lateral and posterior interbody fusion 2. L3-4, L4-5, L5-S1 interbody cage placement. 3. L2-3, L3-4, L4-5, L5-S1 decompressive laminectomy with bilateral facetecomies 4. L2-3 posterior lateral fusion 5. L2-3, L3-4, L4-5, L5-S1 Posterior segmental instrumentation 6. [place] of bone marrow from iliac crest 7. Utilization of microsurgical technique and operating microscope Same procedure as scheduled: Yes Indications: Patient has been having chronic back pain and worsening lumbar radiculopathy. Patient failed multiple conservative management with worsening pain weakness and numbness in her lower extremity. Patient has been having difficulty performing activity of daily living. After discussing risks benefits of treatment options, patient elected proceed with surgery. Surgeon: Artem Wolfe Telecommunication Engineer: Kim Roe Click Yes if Unassisted: No Anesthesia Type: General Operative Notes Closure Type: primary Specimen(s): none sent Prosthetic devices, grafts, tissues, transplants, or devices: Globus revolve screws, RIse cages Applied: catheter Estimated Blood Loss (mL): 500 Blood products transfused: none Procedure in detail: Patient was seen in the preoperative area. Risks and benefits of the surgery was discussed with the patient. Informed consent was obtained from the patient and placed in the chart. Surgical site was marked. Patient was taken to the operative room. General anesthesia was administered. Prophylactic antibiotic was given to the patient less than 30 min before the incision was made. Patient was placed into a prone position on the Hilario table. Patient's back was then prepped and draped in the sterile fashion. Time- out was performed at this time. Using AP and lateral C-arm imaging the interval between L2-S1 was identified and marked on patient's back. A 3 inch incision 2 in from midline was made on the right side first. The fascia was incised in line with skin incision. Globus MARS retractors was placed inside the incision and docked onto the L2, L3, L4 and L5 lamina. Using microsurgical technique and operating microscope, a L2, L3, L4 and L5 laminectomy and L2-3, L3-4, L4-5 L5-S1 facetectomy was performed using a Kerrison rongeur. Patient was found have severe central and neural foramen stenosis which was fully decompressed after the laminectomy and facetectomy was completed. The disc space at L3-4, L4-5, L5-S1 was identified. And a total diskectomy was performed at L3-4, L4-5, L5-S1 level. The endplates were decorticated using a rasp and shaver. The total diskectomy and decortication was performed at L3-4, L4-5, L5-S1 level in order to to accomplish a L2-3, L3-4, L4-5, L5-S1 fusion. The local bone from the laminectomy and facetectomy was saved for local bone grafting. After the total diskectomy and decortication was completed, Bio4 bone graft material was combined with local bone that was harvested earlier. At this time, a separate skin is incision was made over the iliac crest. A Jamshidi needle was inserted into the iliac crest through a separate skin incision. 5 cc of bone marrow aspiration was obtained through the separate skin incision using a Jamshidi needle from the iliac crest. The bone marrow aspiration was combined with local bone and the Bio4 bone grafting material. The bone grafting material was placed into the L3-4, L4-5, L5-S1 interbody space along with three cages, one expandable cage at each level. The cages were expanded to their maximum height using the torque limiting scr ewdriver. At this time a mirror image incision was made on the left side. The fascia was incised in line with the skin incision. Globus MARS retractor was inserted and docked onto the L2-3, L3-4, L4-5, L5-S1 posterolateral gutter. Using the power drill, posterior-lateral decortication was performed at L2-3, L3-4, L4-5, L5-S1 level until bleeding cortical bone was identified. The remaining bone grafting material was placed into the L2-3, L3-4, L4-5 L5-S1 posterior lateral gutter he order to accomplish posterolateral fusion at the L2-3, L3-4, L4-5 L5-S1 levels. Using the double C-arm technique, pedicle screws were placed into the L2, L3, L4, L5, S1 pedicles bilaterally. This was done by placing the Jamshidi needle into the pedicles, then placing the guidewires over the Jamshidi needle, and finally placing the cannulated screws over the guidewires bilaterally. After the pedicle screws were placed, 2 titanium rods was locked into the heads of the pedicle screws using locking caps and torque limiting screwdriver. Total 8 pedicles screws were placed. After all the hardware was placed, and confirmed with AP and lateral C-arm imaging, the wound was then irrigated with sterile normal saline and packed with Ray-Margarette gauze for 3 min to accomplish hemostasis. After the gauze was removed the deep fascia was closed with #1 Vicryl suture. The subcutaneous layer was closed with 2-0 Vicryl. The skin was closed with skin herlinda. Patient tolerated the procedure well. There were no complications. Complications: none Post-operative Condition: stable Disposition: PACU Plan for aftercare: Admit to inpatient hospital
--- NOTE | 2019-07-13 13:52 | PM.PREOP ---
Pre-operative Note Interval Note History & Physical reviewed/Exam performed by Physician: Yes Changes to H&P: No
--- NOTE | 2019-07-13 14:52 | CM.DANOTE ---
DCP brief Assessment: EMR reviewed: patient is a 68 yr old female who was admitted for multiple level fusion surgery preformed by Dr. SOTO. PCP is Dr Osuna. CM/RN was not able to meet with patient prior to sugery and was off the floor the remainder of the day. According to H&P patient plan is to D/C home with her Jacob and has post op appointment scheduled for 07/19/2019. I: Medicare and [employer]ign[employer] Plan: tentatively d/c home with .CM Department will follow up tomorrow for full assessment and d/c plan. Brooke Rodriguez RN Discharge Planning/Care Management CM Discharge Assessment Start: 07/13/19 14:46 Freq: Status: Active Protocol: Document 07/13/19 14:51 HS (Rec: 07/13/19 14:52 HS [id number]) Discharge Planning Assessment Assigned Hot Walker Brooke Rodriguez RN DPOA/Assigned Designee Name Jacob Givens () Contact Information [phone] Advance Directives? No History Provided By Medical Record Has Patient been admitted in last 30 No days? Prior Living Arrangements House Household Members spouse Independent with ADL's Yes Is patient alert and oriented? Yes: prior to surgery Caregiver for Another No Patient/Family Preference OP PT Therapy Discharge Plan Home Transportation Arrangement Family to provide transport. Referrals Initiated None needed Whiteboard Updated in Patient Room with Yes name and ext. # of Hot Walker Review Status In Process Next Review Type Continued Stay Review Pre-Anesthesia Assessment Start: 06/29/19 14:00 Freq: Status: Active Protocol: Document 06/29/19 14:00 CAB (Rec: 06/29/19 14:27 CAB [id number]) Pre-Anesthesia Assessment Preferred Name Mary Patient Information Reviewed Via Phone Assessment Assessment Completed With Patient Comment Completed per pt, not available at time of assess Primary Care Provider Shady Osuna Seen Specialist in Last 12 Months Yes Specialist Seen Opthamologist/Casting Assistant, Orthopedist Primary Language Occitan Preferred Language Occitan Business Process Modeler Required No Height 157.48 cm Weight 61.235 kg Body Mass Index (BMI) 24.7 Hearing Ability Normal Visual Assist Glasses Dentition Type Teeth, Natural Present Barriers to Learning None Other Aids No Hx Anesthesia Reactions No Hx Family Anesthesia Reaction No Hx Malignant Hyperthermia No Hx Blood Transfusions Yes: R/T ANTONINA 2008 Hx Blood Transfusion Reaction No Anesthesia Review Requested No Forder Operator No alcohol intake current alcohol intake frequency holidays/special occasions only Smoking Status Never smoker Substance Use Type does not use Pain Present Pain Reported Musculoskeletal Symptoms Abnormal Gait,Back Pain, Difficulty Walking,Joint Pain, Muscle Cramps,Muscle Spasms, Muscle Weakness,Numbness, Radiating Pain into Limb, Tingling History of Falling (Recent or History of Yes ) Patient is completely paralyzed or No completely immobile Prosthesis or Orthotic Device Cane Mental Status Oriented to own ability Is patient on oxygen? No Does patient have GRACE/SOB No Hx Sleep Apnea No Currently Taking a Beta Darryl No Can You Climb a Flight of Stairs Without Yes SOB Hx Chest Pain No Hx SOB No Hx Syncope or Dizziness No Anti-Coagulant Therapy No Has a Machinist Wood No Cardiac Testing No Hx Pacemaker/ICD No Pacemaker Rep Required? No Cardiac Clearance Received Not Applicable Diet Type At Home Regular dysphagia No Bladder Pattern Incontinent, Stress Urinary Catheter Present No Hx Urinary Self Catheterization No Diabetes No Patient No Lactating No Hx Drug Resistant Organism No Presence of External or Internal Medical Yes: Right hip prosthesis, Devices cervical hardware Have you traveled outside the [facility] in the last 30 days? Comment [facility] 06/03/19-06/15/19 Marital Status Lives With spouse Prior Living Arrangements House Number of Floors (Floors) Two Floors Support System Friend(s),Spouse Does the Patient Have Assistance After Yes Surgery Patient Discharge Plan Description Return Home Comment Pt advised 3 day length of stay per surgeon Feels Safe in Current Environment Yes Been Physically Hurt or Threatened By a No Person in Current Environment Do you have thoughts of harming yourself None or others? Are you currently considering suicide? No Do you have a plan to hurt yourself or No Plan others? Do You Have Any Spiritual Beliefs That No May Affect Your HC Choices? Do You Have Any Cultural Practices That No May Affect Your HC Choices? Who Can We Speak to About Patient's Care Family, friends Identifying Code for Release of Patient Declines to issue Information Health Care Proxy/Next of Kin Jacob () Health Care Proxy Emergency Contact Name Jacob () Emergency Contact Advance Directives? No: Pt currently working on Power of Pilot Safety Inspector No PAC Instructions Durable medical equipment, Medications to take/avoid, Nasal antibiotic,No ETOH/ petroleum product on skin DOS, NPO,Post-op transportation,Pre -surgical wash,Sturdy shoes/ comfortable clothes,Do not bring valuables and remove jewelry
--- NOTE | 2019-07-13 15:02 | PC.NURSE ---
Recieved from pacu, pt is sleepy but arousable, sats 90-91 on ra and was placed on O2 at 2L NC sats now are 98%. Denies any pain or nausea. Scd's placed. First set of vs obtained and stable appearing. Sys bp is 90's. Call light given and instructed in use. Dressing checked w/pacu nurse and it is clean and dry. Family at bedside. Report to Gwendolyn NEAL, she will do the admit.
[2019-07-13] MEDS: OXYCODONE IR 10 MG TABLET PO ×3 (15:54→23:45)
[2019-07-13] MEDS: SODIUM CHLORIDE 0.9% 1,000 ML 100 ML IV (15:56)
[2019-07-13] MEDS: HYDROMORPHONE 0.5 MG INJ IV ×2 (16:39→18:47)
--- NOTE | 2019-07-13 16:47 | PT-IP ANOTE ---
checked with nurse and stated that pt is not ready for PT; stated we are trying to make her comfortable right now. will f/u tomorrow.
[2019-07-13] MEDS: hydrOXYzine pamoate 25 MG CAPSULE PO ×2 (17:59→23:45)
[2019-07-13] MEDS: PRAMIPEXOLE 0.25 MG TABLET 0.5 MG PO (20:34)
[2019-07-13] MEDS: buPROPion 100 MG TABLET PO (20:34)
[2019-07-13] MEDS: TIZANIDINE 4 MG TABLET 2 MG PO (20:35)
[2019-07-13] MEDS: SERTRALINE 50 MG TABLET 100 MG PO (20:35)
[2019-07-13] MEDS: DOCUSATE 100 MG CAPSULE PO (20:35)
[2019-07-13] MEDS: ASCORBIC ACID 500 MG TABLET PO (20:35)
[2019-07-13] MEDS: SENNOSIDES 8.6 MG TABLET 17.2 MG PO (20:35)
[2019-07-13] MEDS: FERROUS GLUCONATE 324 MG TABLET PO (21:01)
--- NOTE | 2019-07-13 22:28 | PC.NURSE ---
Evening Shift Note- Admit questions done, home medications reviewed, and physical assessment completed. Patient pleasent, calm, and cooperative with care. Surgical dressing to back c/d/i. PRN pain medications reviewed with patient. PRN PO oxycodone given last at 2030. Patient tolerated with no s/s of ASE noted. No c/o N/V. Foot SCD's in place. Patient oriented to bed and bed controls, room, lights, phone, menu, and call paula/tv remote. safety measures in place. patient agrees to call for assistance. bed alarm activated. call paula and phone within reach. will continue to monitor.
[2019-07-13] MEDS: MAG HYDROX/ALUM/SIMETH 30 ML UDC PO (23:51)
[2019-07-14] VITALS (16 sets, daily range): BP systolic 85–111; BP diastolic 51–64; PULSE 76–83; RESP 12–20; TEMP 36.3–37.7; O2SAT 91–100
[2019-07-14 00:30] LABS: Hematocrit 21.6 % (36-46)
[2019-07-14] MEDS: SODIUM CHLORIDE 0.9% 500 ML 1000 ML IV (00:39)
[2019-07-14 00:41] LABS: Hemoglobin 6.9 g/dL (12.0-16.0)
--- NOTE | 2019-07-14 04:42 | PC.NURSE ---
Addendum entered by Belen Burdick R.N. 07/14/19 06:30: Conte output for shift only 250mL Addendum entered by Belen Burdick R.N. 07/14/19 06:03: Pt still reporting a lot of pain; IVP dilaudid given Original Note: Upon walking into patients room she looked extremely pale; she reports feeling a little weak as well. Hypotensive with BP 85/48. Dr. Avila called and notified of patients status. Labs taken early and 500mL NS bolus ordered and given. Pts BP has been unchanged. Critical Hemoglobin of 6.9, Hct 21.6; Dr. Avila notified and ordered 2units PRBCs. Pt states feeling much better with the second blood transfusion running in. Some bloody drainage noted to dressing; will report to next nurse. b/L feet SCDs on throughout night. Conte patent. Oxy 10mg given with good relief. Pt has not been OOB yet.
[2019-07-14] MEDS: OXYCODONE IR 10 MG TABLET PO (05:03)
[2019-07-14] MEDS: LEVOTHYROXINE 25 MCG TABLET PO (05:50)
[2019-07-14] MEDS: HYDROMORPHONE 0.5 MG INJ IV (05:50)
[2019-07-14 06:23] LABS: Hemoglobin 9.3 g/dL (12.0-16.0)
[2019-07-14] MEDS: ASCORBIC ACID 500 MG TABLET PO ×2 (08:55→21:09)
[2019-07-14] MEDS: PANTOPRAZOLE 40 MG TABLET PO (08:56)
[2019-07-14] MEDS: buPROPion 100 MG TABLET PO ×2 (08:56→21:09)
[2019-07-14] MEDS: SERTRALINE 50 MG TABLET 100 MG PO ×2 (08:56→21:09)
[2019-07-14] MEDS: DOCUSATE 100 MG CAPSULE PO ×2 (08:56→21:09)
[2019-07-14] MEDS: SODIUM CHLORIDE 0.9% 1,000 ML 100 ML IV ×2 (09:06→19:08)
--- NOTE | 2019-07-14 09:12 | PM.PNPO.1 ---
Subjective Subjective Date Patient Seen: 07/14/19 Time Patient Seen: 09:12 Interval history: Patient reports that she is in significant discomfort. She does not feel as weak as she did prior to transfusion. Exam Vital Signs (past 8 hours): - 07/14/19 01:25 07/14/19 01:41 07/14/19 03:04 Temperature 97.4 F L 98.6 F 99.5 F Pulse Rate 79 80 79 Respiratory Rate 18 18 20 Blood Pressure 93/61 89/51 L 86/53 L Pulse Oximetry 07/14/19 03:06 07/14/19 03:21 07/14/19 03:27 Temperature 99.5 F 99.6 F Pulse Rate 79 80 Respiratory Rate 20 18 Blood Pressure 86/53 L 87/55 L Pulse Oximetry 94 07/14/19 05:10 07/14/19 05:22 07/14/19 05:23 Temperature 99.8 F H 99.8 F H Pulse Rate 77 77 Respiratory Rate 12 16 Blood Pressure 111/64 111/64 Pulse Oximetry 94 94 Oxygen Delivery Method Room Air Oxygen Flow Rate 0 Narrative Exam Narrative: Spine wound is dressed with moderate drainage on the bandage. No surrounding erythema. Calves are soft. Light touch and motion are intact in both lower extremities. Objective Labs Result Diagrams: 07/14/19 06:11 Labs: Laboratory Results - last 24 hr 07/14/19 07/14/19 07/14/19 00:11 00:11 06:11 Hgb 6.9 L* 9.3 L Hct 21.6 L 28.0 L Blood Type A Positive Antibody Screen Negative Crossmatch See Detail Assessment & Plan Post-op Postoperative Procedures: Procedures Operation Date: 07/13/19 07:45 Actual Procedures Side Surgeon p L2-3, L3-4, L4-5, L5-S1 TLIF w/ posterior instrumentation Artem Wolfe MD Postoperative day: 1 Postoperative status: doing well, marginal pain control and anemia Postoperative status narrative: The patient had substantial anemia and hypotension last night. This has responded to 2 units of packed red blood cells. She has marginal pain control on oxycodone with IV Dilaudid back up. Postoperative plan: routine post-op care Postoperative plan narrative: We will adjust her pain management to include oral Dilaudid to see if this is more effective. She will mobilize as tolerated. We will change her dressing today and recheck her hematocrit tomorrow morning. Time Spent With Patient Time with patient: less than 15 minutes
[2019-07-14] MEDS: FERROUS GLUCONATE 324 MG TABLET PO ×2 (09:35→21:15)
[2019-07-14] MEDS: HYDROMORPHONE 2 MG TABLET PO ×3 (09:36→21:08)
--- NOTE | 2019-07-14 11:21 | PT.IIE ---
Current Diagnoses Other secondary scoliosis, lumbar region (07/13/19) Spondylolisthesis, lumbar region (07/13/19) Spinal stenosis, lumbar region without neurogenic claudication (07/13/19) Surgery Performed Operation Date: 07/13/19 07:45 Actual Procedures p L2-3, L3-4, L4-5, L5-S1 TLIF w/ posterior instrumentation - Artem Wolfe MD Surgical History (Last Updated 06/29/19 @ 14:15 by Lynda Morris RN) History of total right hip arthroplasty (Acute ~2008) Hx of eye surgery (Acute ~2015) S/P cervical spinal fusion (Acute 07/03/18) Medical History (Last Updated 06/29/19 @ 14:14 by Lynda Morris RN) Admission for breast augmentation (Acute) Arthritis (Acute) Bruises easily (Acute) Cataract fragments in right eye following surgery (Acute ~2016) Chronic prescription opiate use (Acute) Compression fracture of L2 vertebra (Acute) Detached retina, right (Acute ~2012) Hypothyroidism (Acute) Osteoarthritis of cervical spine with myelopathy (Acute) 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) Osteoporosis (Acute) Peptic ulcer disease (Acute) Postmenopausal (Acute) Recurrent major depressive disorder (Acute) Restless leg syndrome (Acute) Physical Therapy Inpatient Evaluation/Re-Eval M1 PT/OT-IP Prior Functional Status Start: 07/14/19 15:36 Freq: NEEDED Status: Active Protocol: Document 07/14/19 11:21 AB (Rec: 07/14/19 15:50 AB [id number]) Medical Review Prior Functional Status Medical History Reviewed Yes Communication able to make needs known Mobility and Gait pt stated that she is independent with all mobilities and ambulation without AD Social History Household Members spouse Living Arrangements House Number of Floors (Floors) One Floor Number of Stairs To Enter/Railing? 2 steps to enter without rails Home Environment Standard Height Toilet,Walk in Shower Home Equipment Front Wheel Walker,Four Wheel Walker,Quad Cane,Straight Cane ,Raised Toilet Seat Without Armrests,Hand Held Shower M2 PT-IP Current Condition Start: 07/14/19 15:36 Freq: NEEDED Status: Active Protocol: Document 07/14/19 11:21 AB (Rec: 07/14/19 15:50 AB [id number]) Physical Therapy Current Condition Current Condition Evaluation Date 07/14/19 Treatment Diagnosis s/p L3-S1 posterior fusion/ lami; difficulty in walking Onset Date 07/13/2019 Precautions Lumbar Precautions Log Roll,No Twisting,Limit Bending,Lifting Restriction of 10 lbs,Gait Belt above Incisional Area M3 PT-IP Subjective Start: 07/14/19 15:36 Freq: NEEDED Status: Active Protocol: Document 07/14/19 11:21 AB (Rec: 07/14/19 15:50 AB [id number]) Subjective Physical Therapy Visit Type Type Initial Evaluation Visit Start Time 11:21 Visit Stop Time 11:55 Total Visit Minutes 34 Number of WEBSPHERE ADMINISTRATOR Visits 0 Physical Therapy Visit Comments Patient Comments pt agreeable to do PT Therapy Pain Assessment Pain When Pain Assessed At Rest Pain Present Pain Present Pain Reported Location lowert back Intensity 6 Scale Used Numeric (1 - 10) Pain Management Techniques Re-positioning,Timing of Activity with Medications M4 PT-IP Mobility and Gait Start: 07/14/19 15:36 Freq: NEEDED Status: Active Protocol: Document 07/14/19 11:21 AB (Rec: 07/14/19 15:50 AB [id number]) PT-Bed Mobility Assessment Rolling Type of Rolling Log Rolling Level of Assist Maximal Assistance,1 Person Assistance Supine to Sit Supine to Sit Maximum Assistance,Bedrails Scooting Scooting to Edge of Bed Maximum Assistance PT-Transfer Assessment Sit to and From Stand Sit to and from Stand Maximum Assistance,2 Person Assistance,Use of Upper Extremities Equipment Transfer Assistive Device Gait Belt,Front Wheeled Walker Orthotic/Prosthetic Devices or Brace: No Transfers Transfer Destination Chair Transfer Technique ambulated using FWW Transfer Ability Level of Assist Maximum Assistance,1 Person Assistance,2 Person Assistance ,Use of Upper Extremities Comments Mobility Comments BP supine: 110/71 pt completed supine to sit max A and max cues for log roll and precautions. pt was able to sit on EOB CGA. c/o lightheadedness BP: 107/64. completed sit to stand max A and cues. (+) L knee buckling. cued for quad activation. completed ambulation towards the chair using FWW ~ 12 ft max A x 2 and max cues. (+) R knee buckling especially with turns and backing up. positioned pt on chair. Left pt wht nurse. Gait Assessment Gait Gait Assistance Required: Maximum Assistance,2 Person Assist Distance (Feet) 12 Able to Maintain Weight Bearing Status Yes During Gait Assistive Devices Assistive Device Gait Belt,Front Wheeled Walker Orthotic/Prosthetic Devices or Brace: No Gait Deviations General Gait Pattern Antalgic,Decreased Stride Length,Decreased Feet Clearance Factors Limiting Gait Function Factors Limiting Gait Function Decreased Activity Tolerance, Decreased Strength,Limited Range of Motion,Pain,Poor Balance,Poor Safety Awareness Comments Gait Comments pls refer to mobility section for details PT-Balance Assessment Sitting Balance and Reactions Static Sitting Balance Ability Good Dynamic Sitting Balance Ability Fair Standing Balance and Reactions Static Standing Balance Ability Poor Dynamic Standing Balance Ability Poor Device Used FWW M5 PT-IP Objective Assessments Start: 07/14/19 15:36 Freq: NEEDED Status: Active Protocol: Document 07/14/19 11:21 AB (Rec: 07/14/19 15:50 AB [id number]) Orientation Orientation/Cognition Level of Alertness Alert Orientation Name,Place,Situation Safety Awareness Decreased Safety Awareness Gross Range of Motion Lower Extremity ROM Assessment Within Functional Limits Strength Lower Extremity Strength Assessment Bilaterally Impaired Hip 3-/5 Knee 3+/5 Coordination Assessment Gross Coordination Gross Coordination WNL Sensation Assessment Sensation Gross Sensation WNL Muscle Tone Muscle Tone WNL Yes M6 PT-IP Treatment Start: 07/14/19 15:36 Freq: NEEDED Status: Active Protocol: Document 07/14/19 11:21 AB (Rec: 07/14/19 15:50 AB [id number]) Physical Therapy Treatment Education Education Provided Precautions,Weight Bearing Status,Post-Op Packet,Safety M7 PT-IP Assessment and Plan Start: 07/14/19 15:36 Freq: NEEDED Status: Active Protocol: Document 07/14/19 11:21 AB (Rec: 07/14/19 15:50 AB [id number]) PT Summary Assessment and Plan Potential Rehabilitation Potential Good Status of Condition at Evaluation Evolving Summary Impairments Pain,ROM,Strength,Balance, Coordination,Sensation,Tone, Cognition,Bed Mobility, Transfers,Gait,Activity Tolerance Assessment Summary pt requiring max A x 2 and max cues and unable to tolerate much activity with c/o nausea and lightheadedness. pt with (+) R knee buckling and needs more strengthening prior to going home. Pt will require SNF rehab to improve strength and mobility. will continue to assess progress. will conduct caregiver training when appropriate. Goals Bed Mobility Goal Standby Assistance Transfer Goal Standby Assistance,Front Wheeled Walker Gait Goal Standby Assistance,Front Wheel Walker Gait Distance 100 Other Goals up/down 2 steps using cane/ALUMINUM POOL INSTALLER min A Days to Meet Goals 10 Frequency of Treatment Frequency Of Treatment Twice a Day Treatment Plan Physical Therapy Treatment Plan Bed Mobility Training,Transfer Training,Gait Training, Therapeutic Exercise,Balance Retraining,Post Op Education, Discharge Planning,Hot or Cold Pack,Neuromuscular Re-ed, Coordination Retraining,Manual Therapy Other Recommendations and Next Treatment ambulation, transfers Focus Recommendations To Nursing Amount of Assist Needed 2 Person Assist Discharge Recommendations PT Discharge Recommendations SNF Rehab
--- NOTE | 2019-07-14 16:28 | PT.IPTN ---
Current Diagnoses Other secondary scoliosis, lumbar region (07/13/19) Spondylolisthesis, lumbar region (07/13/19) Spinal stenosis, lumbar region without neurogenic claudication (07/13/19) Surgery Performed Operation Date: 07/13/19 07:45 Actual Procedures p L2-3, L3-4, L4-5, L5-S1 TLIF w/ posterior instrumentation - Artem Wolfe MD Physical Therapy Treatment Note M2 PT-IP Current Condition Start: 07/14/19 15:36 Freq: NEEDED Status: Active Protocol: Document 07/14/19 11:21 AB (Rec: 07/14/19 15:50 AB [id number]) Physical Therapy Current Condition Current Condition Evaluation Date 07/14/19 Treatment Diagnosis s/p L3-S1 posterior fusion/ lami; difficulty in walking Onset Date 07/13/2019 Precautions Lumbar Precautions Log Roll,No Twisting,Limit Bending,Lifting Restriction of 10 lbs,Gait Belt above Incisional Area M3 PT-IP Subjective Start: 07/14/19 15:36 Freq: NEEDED Status: Active Protocol: Document 07/14/19 16:00 KS (Rec: 07/14/19 17:14 KS [email or web address]) Subjective Physical Therapy Visit Type Type Treatment Note Visit Start Time 16:00 Visit Stop Time 16:28 Total Visit Minutes 28 Notes Pts present during treatment. 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 Therapy Pain Assessment Pain When Pain Assessed At Rest Pain Present Pain Present Pain Reported Location lowert back Scale Used no number given Pain Management Techniques Re-positioning M4 PT-IP Mobility and Gait Start: 07/14/19 15:36 Freq: NEEDED Status: Active Protocol: Document 07/14/19 16:00 KS (Rec: 07/14/19 17:14 KS [email or web address]) PT-Bed Mobility Assessment Rolling Type of Rolling Log Rolling,Roll to Left Level of Assist Minimal Assistance,2 Person Assistance Supine to Sit Supine to Sit Minimal Assistance,2 Person Assistance,Bedrails Scooting Scooting to Edge of Bed Contact Guard Assistance Scooting Up and Down in Bed Moderate Assistance PT-Transfer Assessment Sit to and From Stand Sit to and from Stand Minimal Assistance,Moderate Assistance,2 Person Assistance ,Use of Upper Extremities Equipment Transfer Assistive Device Gait Belt,Front Wheeled Walker Orthotic/Prosthetic Devices or Brace: No Transfers Transfer Destination Bed Transfer Technique Pt ambulated using FWW. Transfer Ability Level of Assist Minimal Assistance,Moderate Assistance,2 Person Assistance ,Use of Upper Extremities Comments Mobility Comments Pt was asleep in bed upon arrival from therapy and was in room. Pt at first was reluctant to participate due to fatigue but then agreed to exercises in bed. Instructed pt and pt performed 1x10 ankle pumps, quad sets, glute sets, and SLR . After exercises, pt was agreeable to get out of bed. Nursing called for assistance. Min A x2 and mod cues for logroll to L and sidelying<> sit EOB. CGA and cues for scooting EOB. Min to Mod A x2 and mod cues for sit<>stand w/ FWW. Pt then marched in place for 30 sec prior to initiated ambulation then took 3 steps forward and back towards bed w / max cues for quad activation to avoid knee buckling. Pt reported fatigue secondary to ambulation and exercise, Min A x2 and cues for lowering back into bed slowly. Min A x2 and cues for no twisting for logroll back into bed. Mod A x2 for re-positioning in bed. Pt left in bed w/ SCDs on and all needs in reach. Gait Assessment Gait Gait Assistance Required: Minimum Assistance,2 Person Assist Distance (Feet) 6 Able to Maintain Weight Bearing Status Yes During Gait Assistive Devices Assistive Device Gait Belt,Front Wheeled Walker Orthotic/Prosthetic Devices or Brace: No Gait Deviations General Gait Pattern Antalgic,Decreased Stride Length,Decreased Feet Clearance Factors Limiting Gait Function Factors Limiting Gait Function Decreased Activity Tolerance, Decreased Strength,Limited Range of Motion,Pain,Poor Balance,Poor Safety Awareness Comments Gait Comments please refer to mobility section for details M5 PT-IP Objective Assessments Start: 07/14/19 15:36 Freq: NEEDED Status: Active Protocol: Document 07/14/19 11:21 AB (Rec: 07/14/19 15:50 AB [id number]) Orientation Orientation/Cognition Level of Alertness Alert Orientation Name,Place,Situation Safety Awareness Decreased Safety Awareness Gross Range of Motion Lower Extremity ROM Assessment Within Functional Limits Strength Lower Extremity Strength Assessment Bilaterally Impaired Hip 3-/5 Knee 3+/5 Coordination Assessment Gross Coordination Gross Coordination WNL Sensation Assessment Sensation Gross Sensation WNL Muscle Tone Muscle Tone WNL Yes M6 PT-IP Treatment Start: 01/25/20 15:36 Freq: NEEDED Status: Active Protocol: Document 07/14/19 16:00 KS (Rec: 07/14/19 17:14 KS [email or web address]) Physical Therapy Treatment Exercises Exercises Ankle Pumps,Gluteal Sets,Quad Sets,Straight Leg Raises Education Education Provided Precautions,Post-Op Packet, Safety M7 PT-IP Assessment and Plan Start: 07/14/19 15:36 Freq: NEEDED Status: Active Protocol: Document 07/14/19 16:00 KS (Rec: 07/14/19 17:14 KS [email or web address]) PT Summary Assessment and Plan Potential Rehabilitation Potential Good Status of Condition at Evaluation Evolving Summary Impairments Pain,ROM,Strength,Balance, Coordination,Sensation,Tone, Cognition,Bed Mobility, Transfers,Gait,Activity Tolerance Assessment Summary Pt needed less assist this afternoon. Instructed pt and pt performed 1x10 LE strengthening exercises including ankle pumps, quad sets, glute sets, and SLR. Min A x2 and cues for logroll and sidelying<>sit EOB, CGA for scooting EOB, and Min to Mod A x2 fot sit<>stand w/ FWW. Pt marched in place then ambulated Min A w/ FWW 3 steps forward and back and two steps to side w/ cues for quad activation before sitting back in bed Min A x2 w/ cues for hand placement and slow lowering into bed. Min A x2 for sit<>sidelying and logroll back into bed. Mod A for repositioning in bed. Goals Bed Mobility Goal Standby Assistance Transfer Goal Standby Assistance,Front Wheeled Walker Gait Goal Standby Assistance,Front Wheel Walker Gait Distance 100 Other Goals up/down 2 steps using cane/DEMONSTRATOR ELECTRIC GAS APPLIANCES min A Days to Meet Goals 10 Frequency of Treatment Frequency Of Treatment Twice a Day Treatment Plan Physical Therapy Treatment Plan Bed Mobility Training,Transfer Training,Gait Training, Therapeutic Exercise,Balance Retraining,Post Op Education, Discharge Planning,Hot or Cold Pack,Neuromuscular Re-ed, Coordination Retraining,Manual Therapy Other Recommendations and Next Treatment ambulation, transfers Focus Recommendations To Nursing Amount of Assist Needed 2 Person Assist Discharge Recommendations PT Discharge Recommendations SNF Rehab
--- NOTE | 2019-07-14 17:04 | OT.IPNOTE ---
Pt states just got back to bed after PT session and too tired to do OT eval at this time , therefore to come tomorrow to see pt for OT eval.
--- NOTE | 2019-07-14 20:42 | PC.NURSE ---
Evening Shift Note 07/14/19 17:19 07/14/19 18:07 07/14/19 19:00 Temperature 99.5 F Pulse Rate 76 Respiratory Rate 15 Blood Pressure 87/53 L 85/60 L 92/52 L Pulse Oximetry 93 Patient with blood pressure of 87/53, MAP 64 this evening while laying in bed at a 30 degree level expressing feeling weakness, output of 41cc/hr in last 3 hours, patient very pale in appearance, oxygen saturations low 90's. Patient put in [place] position -6 degree, slight improvement in blood pressure, oxygen saturations 95% on 2L NC. tibco developer paged and updated on current status. Verbal orders to continue monitoring of patient, encourage oral intake and call if MAP less than 60, urinary output less than 30cc/hr or patient symptomatic with low blood pressure. Patient monitored through out shift, blood pressures taken manually and sustained within patients baseline, MAPs of 65 and asymptomatic. Able to reposition patient to semi-fowlers for dinner BP 92/52, MAP 65, tolerating oral intake, no complaints of dizziness, patient no longer pale in appearance. Will continue to monitor.
[2019-07-14] MEDS: SENNOSIDES 8.6 MG TABLET 17.2 MG PO (21:09)
[2019-07-14] MEDS: PRAMIPEXOLE 0.25 MG TABLET 0.5 MG PO (21:10)
[2019-07-15] MEDS: hydrOXYzine pamoate 25 MG CAPSULE PO (00:04)
[2019-07-15] MEDS: HYDROMORPHONE 2 MG TABLET PO ×6 (00:04→20:03)
[2019-07-15 00:05] VITALS: BP 124/65; PULSE 93; RESP 16; TEMP 36.6; O2SAT 96
[2019-07-15] MEDS: HYDROMORPHONE 0.5 MG INJ IV (00:42)
[2019-07-15 05:03] LABS: Hematocrit 25.1 % (36-46)
[2019-07-15 05:20] VITALS: BP 118/59; PULSE 90; RESP 16; TEMP 36.8; O2SAT 92
[2019-07-15] MEDS: LEVOTHYROXINE 25 MCG TABLET PO (05:23)
[2019-07-15] MEDS: SODIUM CHLORIDE 0.9% 1,000 ML 100 ML IV (05:25)
[2019-07-15] MEDS: buPROPion 100 MG TABLET PO ×2 (08:23→20:06)
[2019-07-15] MEDS: SUMAtriptan 25 MG TABLET PO (08:23)
[2019-07-15] MEDS: FERROUS GLUCONATE 324 MG TABLET PO ×2 (08:32→20:14)
[2019-07-15] MEDS: DOCUSATE 100 MG CAPSULE PO ×2 (08:32→20:05)
[2019-07-15] MEDS: PANTOPRAZOLE 40 MG TABLET PO (08:32)
[2019-07-15] MEDS: ASCORBIC ACID 500 MG TABLET PO ×2 (08:33→20:06)
[2019-07-15] MEDS: SERTRALINE 50 MG TABLET 100 MG PO ×2 (08:33→20:05)
[2019-07-15 08:46] VITALS: BP 118/63; PULSE 95; RESP 15; TEMP 37.6; O2SAT 91
--- NOTE | 2019-07-15 09:20 | PM.PNPO.1 ---
Subjective Subjective Date Patient Seen: 07/15/19 Time Patient Seen: 09:20 Interval history: Patient reports ongoing discomfort postoperatively. Exam Vital Signs (past 8 hours): - 07/15/19 05:20 07/15/19 08:46 Temperature 98.2 F 99.6 F Pulse Rate 90 95 H Respiratory Rate 16 15 Blood Pressure 118/59 L 118/63 Pulse Oximetry 92 91 Oxygen Delivery Method Nasal Cannula Oxygen Flow Rate 0 Narrative Exam Narrative: Dressing intact. Light touch and motion intact in both lower extremities. Objective Labs Result Diagrams: 07/15/19 04:48 Labs: Laboratory Results - last 24 hr 07/15/19 04:48 Hct 25.1 L Assessment & Plan Post-op Postoperative Procedures: Procedures Operation Date: 07/13/19 07:45 Actual Procedures Side Surgeon p L2-3, L3-4, L4-5, L5-S1 TLIF w/ posterior instrumentation Artem Wolfe MD Postoperative day: 2 Postoperative status: doing well, marginal pain control and anemia Postoperative status narrative: Patient is postoperative day 2 status post an L2-S1 fusion by Dr. Artem Wolfe. She had received 2 units of packed red blood cells on the evening of postop day 0. Her hematocrit has trended down slightly. She has made marginal progress with therapy and they are currently recommending detention. Postoperative plan: routine post-op care and ambulate Postoperative plan narrative: We will consult discharge planning for possible detention placement tomorrow. We will monitor her hemoglobin and hematocrit tomorrow to make sure it does not drop further. Time Spent With Patient Time with patient: less than 15 minutes
--- NOTE | 2019-07-15 10:01 | OT.IP.EVAL ---
Current Diagnoses Other secondary scoliosis, lumbar region (07/13/19) Spondylolisthesis, lumbar region (07/13/19) Spinal stenosis, lumbar region without neurogenic claudication (07/13/19) Surgery Performed Operation Date: 07/13/19 07:45 Actual Procedures p L2-3, L3-4, L4-5, L5-S1 TLIF w/ posterior instrumentation - Artem Wolfe MD Past Medical History (Last Updated 06/29/19 @ 14:14 by Lynda Morris RN) Admission for breast augmentation (Acute) Arthritis (Acute) Bruises easily (Acute) Cataract fragments in right eye following surgery (Acute ~2016) Chronic prescription opiate use (Acute) Compression fracture of L2 vertebra (Acute) Detached retina, right (Acute ~2012) Hypothyroidism (Acute) Osteoarthritis of cervical spine with myelopathy (Acute) 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) Osteoporosis (Acute) Peptic ulcer disease (Acute) Postmenopausal (Acute) Recurrent major depressive disorder (Acute) Restless leg syndrome (Acute) Surgical History (Last Updated 06/29/19 @ 14:15 by Lynda Morris RN) History of total right hip arthroplasty (Acute ~2008) Hx of eye surgery (Acute ~2015) S/P cervical spinal fusion (Acute 07/03/18) Occupational Therapy Inpatient Evaluation/Re-Eval M1 PT/OT-IP Prior Functional Status Start: 07/15/19 09:59 Freq: NEEDED Status: Active Protocol: Document 07/15/19 10:00 [facility] (Rec: 07/15/19 10:53 [facility] [id number]) Medical Review Prior Functional Status Medical History Reviewed Yes Communication able to make needs known Mobility and Gait pt stated that she is independent with all mobilities and ambulation without AD Activities of Daily Living and IADL's Pt states prior was independent with all Adl and IADL needs. Social History Household Members spouse Living Arrangements House Number of Floors (Floors) One Floor Number of Stairs To Enter/Railing? 2 steps to enter without rails Home Environment Standard Height Toilet,Walk in Shower Home Equipment Front Wheel Walker,Four Wheel Walker,Quad Cane,Straight Cane ,Raised Toilet Seat Without Armrests,Hand Held Shower Additional Social History Comment Pt states has ordered suction cup grab bars for the bathroom and has a counter on the left side of the toilet. M2 OT-IP Current Condition Start: 07/15/19 09:59 Freq: Status: Active Protocol: Document 07/15/19 10:00 [facility] (Rec: 07/15/19 10:53 [facility] [email or web address]) Occupational Therapy Current Condition Current Condition Evaluation Date 07/15/19 Treatment Diagnosis s/p L2-3, L3-4, L4-5, L5-S1, TLIF w/posterior instr. Diagnosis Onset Date 07/13/19 Post Operative Precautions Lumbar Precautions Log Roll,No Twisting,Limit Bending,Lifting Restriction of 10 lbs,Gait Belt above Incisional Area Weight Bearing Status Weight Bearing Status Weight Bear as Tolerated M3 OT- IP Subjective and Pain Start: 07/15/19 09:59 Freq: Status: Active Protocol: Document 07/15/19 10:00 [facility] (Rec: 07/15/19 10:53 [facility] [id number]) OT- Subjective Occupational Therapy Visit Type Type Initial Evaluation Visit Start Time 09:04 Visit Stop Time 10:01 Total Visit Minutes 57 Occupational Therapy Visit Comments Patient Comments Pt cooperative and agreed to try to get up to the recliner. During OT eval, Surgeon came in to talk to the pt regarding possibility of going to skilled rehab versus home pending her progress. Surgeon also states to get another blood reading for tomorrow but wanting to give her more blood at this time. Patient/Caregiver Goals Pt wanting to go home but realistically knows would be best to go to skilled rehab initially. OT Pain Assessment Pain When Pain Assessed At Rest Pain Present Pain Present Pain Reported Location lowert back Intensity 6 M4 OT- IP ADL's Start: 07/15/19 09:59 Freq: Status: Active Protocol: Document 07/15/19 10:00 [facility] (Rec: 07/15/19 10:53 [facility] [id number]) OT [id number] Comments OT Self-Feeding Comments Pt just sstates has been only been drinking liquids. OT ADL-Grooming General Evaluation Grooming Ability Standby Assistance Areas Needing Assistance Retrieving/Set-up of Grooming Items Comments OT Grooming Comments WHile sitting in the reclienr after set-up. OT ADL-Oral Care General Eval Oral Care Ability Independent OT ADL-Dressing General Eval Lower Body Dressing Ability Minimal Assistance,Maximum Assistance Comments OT Dressing Comments Able to educate pt on use of croze cutter, sock aid for LB dressing needs and for proper body mechanics due to back precautions. Educated to niko right LE first as weaker. OT ADL-Toileting Comments OT Toileting Comments Educated to pt would best to lean to the left side to counter while wiping with her right hand. Otherwise would be best to stand with FWW and bend at her hips to wipe. At this time pt will need physical assist. Pt states toilet at home is at least 10 ft away from the bed and having to get up 2-3 times at night. Pt's sleeps in a different room and hard of hearing and not sure if he would wake up if she called him to help her. Pt educated would be best to wear pads at night and have a BSC next to the bed. OT ADL-Bathing Comments OT Bathing Comments Not performed. M6 OT- IP Functional Cognition Start: 07/15/19 09:59 Freq: Status: Active Protocol: Document 07/15/19 10:00 [facility] (Rec: 07/15/19 10:53 [facility] [id number]) Cognitive Factors Limiting Selfcare Function Cognitive Ability Level of Alertness Alert Patient Orientation Name,Place,Situation Attention Span Ability Capable of Focused Attention, Capable of Sustained Attention Ability to Follow Commands Able to Follow One Step Commands Safety Awareness Decreased Ability to Apply Precautions,Underestimates Need for Assistance Cognitive Comments Cognitive Assessment Comments Pt needing cues for safety awareness and for proper body mechanics to help with the transition from sit to stand. OT- Vision and Hearing OT- Hearing Assessment OT- Hearing Assessment WFL OT- Vision Assessment Visual Acuity Glasses All The Time M7 OT- IP Mobility and Balance Start: 07/15/19 09:59 Freq: Status: Active Protocol: Document 07/15/19 10:00 [facility] (Rec: 07/15/19 10:53 [facility] [id number]) OT- Bed Mobility Assessment Rolling Type of Rolling Roll to Right Level of Assistance Contact Guard Assistance, Bedrails Supine to Sit Supine to Sit Assist Moderate Assistance,1 Person Assistance Scooting Scooting to Edge of Bed Minimal Assistance,Bedrails OT-Transfer Assessment Sit to and From Stand Sit to and from Stand Moderate Assistance,Maximum Assistance,1 Person Assistance Transfers Transfer Ability Moderate Assistance,1 Person Assistance Technique Transfer Destination Bed,Chair Devices Transfer Assistive Devices Gait Belt,Front Wheeled Walker Comments Mobility Comments Pt heavily relies on bed rail and states would probably order one for home use. From sidelying, pt needing MOD/MAX x 1 to sit upright. Coming to stand at times legs buckle and needing from MOD to MAX X 1 to stand to FWW. Once up on FWW MODA X 1 to transfer and another person to assist for IV pole. Pt tired from just the transfer. OT- Gait Assessment Comments Gait Ability Comments Just transfer at this time. OT- Balance Assessment Sitting Balance and Reactions Static Sitting Balance Ability Good Dynamic Sitting Balance Ability Fair Standing Balance and Reactions Static Standing Balance Ability Poor M8 OT- IP Objective Assessments Start: 07/15/19 09:59 Freq: Status: Active Protocol: Document 07/15/19 10:00 [facility] (Rec: 07/15/19 10:53 [facility] [id number]) OT Gross Range of Motion Upper Extremity Range of Motion Assessment Within Functional Limits OT Strength Upper Extremity Strength Assessment Within Functional Limits OT-Muscle Tone Assessment Muscle Tone WNL No M9 OT- IP Assessment and Plan Start: 07/15/19 09:59 Freq: Status: Active Protocol: Document 07/15/19 10:00 [facility] (Rec: 07/15/19 10:53 [facility] [email or web address]) OT Summary Assessment and Plan Potential Rehabilitation Potential Good Analytic Complexity at Evaluation Low Summary OT Impairments Pain,Balance,Functional Mobility,Dressing,Toileting, Bathing Progress Towards Goals Progressing Toward Goals Assessment Summary Pt low complexity and main barriers are pain, now needing two person assist for transfers and noted buckling of right knee at times, decreased activity tolerance and only able to tolerate a transfer and ADl's at the edge of the bed. At this time pt far from baseline and too great of care for to assist. Pt agreeable to go to skilled rehab. Goals Grooming Goal Independent Dressing Goal Standby Assistance Toileting Goal Standby Assistance Bathing Goal Minimal Assistance Toilet Transfer Goal Contact Guard Assistance Shower Transfer Goal Minimal Assistance Patient/Caregiver Education Goal Demonstrate Post-Op Precautions,Caregiver Independent Assisting Patient Days to Meet Goals 5 Frequency of Treatment Frequency Of Treatment Once a Day Treatment Plan OT Treatment Plan ADL Training,Functional Mobility,Patient/Family Education,Discharge Planning Other Treatment Recommendations and Next Stand at sink for grooming, Treatment Focus toileting Discharge Recommendations OT Discharge Recommendations SNF Rehab
--- NOTE | 2019-07-15 11:07 | PC.NURSE ---
0832: Pt resting in bed-states she is feeling tired today and has a migraine. Gave Pt pain meds for her back and Sumatriptan and an ice pack for her headache. Pt denies needs at this time and agrees to call for assistance as needed. 0902: Pt reassessed after pain med-states her headache and back pain have improved. Denies needs at this time. Again denies hunger but agreed to drink an Enlive and states she drinks them at home. Provided one for Pt and reminded Pt that she could have them as often as she would like. Pt up in chair with O.T.-after mobility conversation with O.T., Care Management, and RN, Pt has agreed to go to a SNF tomorrow if discharged.HL Pt IV and encouraged fluid intake. Spoke with Pt again about chahal removal and discussed using a bedside commode if she was feeling like she could not walk all the way to the bathroom. This reassured Pt and she has agreed to allow me to remove the chahal but not until after lunch. Pt agrees to call for assistance as needed.
--- NOTE | 2019-07-15 11:17 | PT.IPTN ---
Current Diagnoses Other secondary scoliosis, lumbar region (07/13/19) Spondylolisthesis, lumbar region (07/13/19) Spinal stenosis, lumbar region without neurogenic claudication (07/13/19) Surgery Performed Operation Date: 07/13/19 07:45 Actual Procedures p L2-3, L3-4, L4-5, L5-S1 TLIF w/ posterior instrumentation - Artem Wolfe MD Physical Therapy Treatment Note M2 PT-IP Current Condition Start: 07/14/19 15:36 Freq: NEEDED Status: Active Protocol: Document 07/14/19 11:21 AB (Rec: 07/14/19 15:50 AB [id number]) Physical Therapy Current Condition Current Condition Evaluation Date 07/14/19 Treatment Diagnosis s/p L3-S1 posterior fusion/ lami; difficulty in walking Onset Date 07/13/2019 Precautions Lumbar Precautions Log Roll,No Twisting,Limit Bending,Lifting Restriction of 10 lbs,Gait Belt above Incisional Area M3 PT-IP Subjective Start: 07/14/19 15:36 Freq: NEEDED Status: Active Protocol: Document 07/15/19 11:17 CLB (Rec: 07/15/19 13:32 CLB [id number]) Subjective Physical Therapy Visit Type Type Treatment Note Visit Start Time 11:17 Visit Stop Time 11:33 Total Visit Minutes 16 Number of RETREAD MOLD OPERATOR Visits 2 Physical Therapy Visit Comments Patient Comments Pt agreeable to work with therapy. Therapy Pain Assessment Pain When Pain Assessed At Rest Pain Present Pain Present Pain Reported Location lowert back Intensity 5 Scale Used no number given Pain Management Techniques Re-positioning,Timing of Activity with Medications M4 PT-IP Mobility and Gait Start: 07/14/19 15:36 Freq: NEEDED Status: Active Protocol: Document 07/15/19 11:17 CLB (Rec: 07/15/19 13:32 CLB [id number]) PT-Transfer Assessment Sit to and From Stand Sit to and from Stand Minimal Assistance,Moderate Assistance,1 Person Assistance ,Use of Upper Extremities Equipment Transfer Assistive Device Gait Belt,Front Wheeled Walker Orthotic/Prosthetic Devices or Brace: No Transfers Transfer Destination Chair Transfer Technique Pt ambulated using FWW. Transfer Ability Level of Assist Minimal Assistance,Moderate Assistance,1 Person Assistance ,Use of Upper Extremities Comments Mobility Comments Pt required cues to scoot to edge of chair with CGA. Pt then required assist with positioning RLE to safe position before standing. Pt then required Mod A x1 and cues for hand placement and cues for quad activation. Pt wore slippers for gait but this therapist would recommend use of pt's tennis shoes for ambulation. Pt ambulated in room ~12 ft Min A and cues not to walk too far into walker for safety. Pt fatigued quickly due to low activity tolerance and stated she wanted to walk back to chair to sit down. Pt required verbal and tactile cues for hand placement for safety and Min A to sit for slow descent. Pt was left in chair with call light and all needs within reach. PUDDLER HELPER present during tx. Gait Assessment Gait Gait Assistance Required: Minimum Assistance,1 Person Assist Distance (Feet) 12 Able to Maintain Weight Bearing Status Yes During Gait Assistive Devices Assistive Device Gait Belt,Front Wheeled Walker Orthotic/Prosthetic Devices or Brace: No Gait Deviations General Gait Pattern Antalgic,Decreased Stride Length,Decreased Feet Clearance Factors Limiting Gait Function Factors Limiting Gait Function Decreased Activity Tolerance, Decreased Strength,Limited Range of Motion,Pain,Poor Balance,Poor Safety Awareness Comments Gait Comments pls refer to mobility section for details M5 PT-IP Objective Assessments Start: 07/14/19 15:36 Freq: NEEDED Status: Active Protocol: Document 07/14/19 11:21 AB (Rec: 07/14/19 15:50 AB [id number]) Orientation Orientation/Cognition Level of Alertness Alert Orientation Name,Place,Situation Safety Awareness Decreased Safety Awareness Gross Range of Motion Lower Extremity ROM Assessment Within Functional Limits Strength Lower Extremity Strength Assessment Bilaterally Impaired Hip 3-/5 Knee 3+/5 Coordination Assessment Gross Coordination Gross Coordination WNL Sensation Assessment Sensation Gross Sensation WNL Muscle Tone Muscle Tone WNL Yes M6 PT-IP Treatment Start: 07/14/19 15:36 Freq: NEEDED Status: Active Protocol: Document 07/15/19 11:17 CLB (Rec: 07/15/19 13:32 CLB [id number]) Physical Therapy Treatment Exercises Exercises Ankle Pumps,Gluteal Sets,Quad Sets Education Education Provided Precautions,Safety M7 PT-IP Assessment and Plan Start: 07/14/19 15:36 Freq: NEEDED Status: Active Protocol: Document 07/15/19 11:17 CLB (Rec: 07/15/19 13:32 CLB [id number]) PT Summary Assessment and Plan Potential Rehabilitation Potential Good Status of Condition at Evaluation Evolving Summary Impairments Pain,ROM,Strength,Balance, Coordination,Sensation,Tone, Cognition,Bed Mobility, Transfers,Gait,Activity Tolerance Assessment Summary Pt improving with sit<>stand and gait this session. Pt required Mod A for sit-stand and Min A for stand-sit, pt required Min A for gait but fatigues quickly ambulating ~ 12ft. Pt would benefit from SNF rehab to increase activity tolerance and functional mobility and independence. Goals Bed Mobility Goal Standby Assistance Transfer Goal Standby Assistance,Front Wheeled Walker Gait Goal Standby Assistance,Front Wheel Walker Gait Distance 100 Other Goals up/down 2 steps using cane/CHALKER SOLES min A Days to Meet Goals 10 Frequency of Treatment Frequency Of Treatment Twice a Day Treatment Plan Physical Therapy Treatment Plan Bed Mobility Training,Transfer Training,Gait Training, Therapeutic Exercise,Balance Retraining,Post Op Education, Discharge Planning,Hot or Cold Pack,Neuromuscular Re-ed, Coordination Retraining,Manual Therapy Other Recommendations and Next Treatment ambulation, transfers Focus Recommendations To Nursing Amount of Assist Needed 2 Person Assist Discharge Recommendations PT Discharge Recommendations SNF Rehab
[2019-07-15 12:15] VITALS: BP 110/56; PULSE 96; RESP 18; TEMP 36.4; O2SAT 93
--- NOTE | 2019-07-15 14:28 | CM.DPC ---
DCP/continued: Reviewed chart. Spoke with therapy and current recommendation is SNF for rehab when medically stable. Met with patient explained CM/SW role. Patient sitting on edge of bed with OT at time of visit. Patient not opposed to rehab. Patient provided patient with contracted Medicare facility list. Patient believes that he first choice would be [facility]. Clinicals faxed to [facility] for review. Patient also considering [facility] but reports that it is further from her residence. Patient plans to discuss list with her spouse but provides HEATER ENGINEER HELPER with permission to fax clinicals and call [facility]. P: Pending. Anticipate SNF when medically stable. [facility] faxed. JASBIR Rascon
--- NOTE | 2019-07-15 14:47 | PT.IPTN ---
Current Diagnoses Other secondary scoliosis, lumbar region (07/13/19) Spondylolisthesis, lumbar region (07/13/19) Spinal stenosis, lumbar region without neurogenic claudication (07/13/19) Surgery Performed Operation Date: 07/13/19 07:45 Actual Procedures p L2-3, L3-4, L4-5, L5-S1 TLIF w/ posterior instrumentation - Artem Wolfe MD Physical Therapy Treatment Note M2 PT-IP Current Condition Start: 07/14/19 15:36 Freq: NEEDED Status: Active Protocol: Document 07/14/19 11:21 AB (Rec: 07/14/19 15:50 AB [id number]) Physical Therapy Current Condition Current Condition Evaluation Date 07/14/19 Treatment Diagnosis s/p L3-S1 posterior fusion/ lami; difficulty in walking Onset Date 07/13/2019 Precautions Lumbar Precautions Log Roll,No Twisting,Limit Bending,Lifting Restriction of 10 lbs,Gait Belt above Incisional Area M3 PT-IP Subjective Start: 07/14/19 15:36 Freq: NEEDED Status: Active Protocol: Document 07/15/19 14:47 CLB (Rec: 07/15/19 15:43 CLB [id number]) Subjective Physical Therapy Visit Type Type Treatment Note Visit Start Time 14:47 Visit Stop Time 15:12 Total Visit Minutes 25 Notes Pt's present for tx. Number of CASTING MACHINE OPERATOR HELPER Visits 3 Physical Therapy Visit Comments Patient Comments Pt agreeable to work with therapy. Therapy Pain Assessment Pain When Pain Assessed During Mobility Pain Present Pain Present Pain Reported Location lowert back Intensity 6 Scale Used Numeric (1 - 10) Description Aching,Pressure,Sharp Pain Management Techniques Re-positioning,Timing of Activity with Medications M4 PT-IP Mobility and Gait Start: 07/14/19 15:36 Freq: NEEDED Status: Active Protocol: Document 07/15/19 14:47 CLB (Rec: 07/15/19 15:43 CLB [id number]) PT-Bed Mobility Assessment Rolling Type of Rolling Log Rolling,Bilateral Level of Assist Minimal Assistance,1 Person Assistance Supine to Sit Supine to Sit Minimal Assistance,1 Person Assistance Sit to Supine Sit to Supine Minimal Assistance,2 Person Assistance Scooting Scooting to Edge of Bed Standby Assistance PT-Transfer Assessment Sit to and From Stand Sit to and from Stand Minimal Assistance,Moderate Assistance,1 Person Assistance ,Use of Upper Extremities Equipment Transfer Assistive Device Gait Belt,Front Wheeled Walker Orthotic/Prosthetic Devices or Brace: No Transfers Transfer Destination Bed Transfer Technique Pt ambulated using FWW. Transfer Ability Level of Assist Minimal Assistance,Moderate Assistance,1 Person Assistance ,Use of Upper Extremities Comments Mobility Comments Pt requires cues for log roll to left and Min A to full sit with cues to sequence legs off bed. Pt then required Mod A x2 with sit-supine one guiding shoulders and one to assist with LE's. Pt required Min A for sit-stand from bed and cues for mm activation and Mod A from window bench as it is a lower surface. Pt ambulated in room with shoes on requiring CGA ~40ft, pt with left knee buckling x1 during gait. Left pt in bed with alarm on, SCD's on, call light and all needs within reach and present. Gait Assessment Gait Gait Assistance Required: Minimum Assistance,1 Person Assist Distance (Feet) 40 Able to Maintain Weight Bearing Status Yes During Gait Assistive Devices Assistive Device Gait Belt,Front Wheeled Walker Orthotic/Prosthetic Devices or Brace: No Gait Deviations General Gait Pattern Antalgic,Decreased Stride Length,Decreased Feet Clearance Factors Limiting Gait Function Factors Limiting Gait Function Decreased Activity Tolerance, Decreased Strength,Limited Range of Motion,Pain,Poor Balance,Poor Safety Awareness Comments Gait Comments pls refer to mobility section for details M5 PT-IP Objective Assessments Start: 07/14/19 15:36 Freq: NEEDED Status: Active Protocol: Document 07/14/19 11:21 AB (Rec: 07/14/19 15:50 AB [id number]) Orientation Orientation/Cognition Level of Alertness Alert Orientation Name,Place,Situation Safety Awareness Decreased Safety Awareness Gross Range of Motion Lower Extremity ROM Assessment Within Functional Limits Strength Lower Extremity Strength Assessment Bilaterally Impaired Hip 3-/5 Knee 3+/5 Coordination Assessment Gross Coordination Gross Coordination WNL Sensation Assessment Sensation Gross Sensation WNL Muscle Tone Muscle Tone WNL Yes M6 PT-IP Treatment Start: 07/14/19 15:36 Freq: NEEDED Status: Active Protocol: Document 07/15/19 14:47 CLB (Rec: 07/15/19 15:43 CLB [id number]) Physical Therapy Treatment Exercises Exercises Ankle Pumps Other Treatments Other Treatment Performed placed SCD's on bilateral LE's . M7 PT-IP Assessment and Plan Start: 07/14/19 15:36 Freq: NEEDED Status: Active Protocol: Document 07/15/19 14:47 CLB (Rec: 07/15/19 15:43 CLB [id number]) PT Summary Assessment and Plan Summary Impairments Pain,ROM,Strength,Balance, Coordination,Sensation,Tone, Cognition,Bed Mobility, Transfers,Gait,Activity Tolerance Assessment Summary Pt continues to progress with ambulation requiring Min A and increased gait distance to ~ 40ft/FWW. Pt continues to require Min-Mod A for bed mobility, sit<>stand and transfers. Pt improved with gait quality with increased foot clearance when wearing tennis shoes. Pt will benefit from SNF rehab to increase strength and progress activity tolerance. Goals Bed Mobility Goal Standby Assistance Transfer Goal Standby Assistance,Front Wheeled Walker Gait Goal Standby Assistance,Front Wheel Walker Gait Distance 100 Other Goals up/down 2 steps using cane/SNOWMAKER min A Days to Meet Goals 10 Frequency of Treatment Frequency Of Treatment Twice a Day Treatment Plan Physical Therapy Treatment Plan Bed Mobility Training,Transfer Training,Gait Training, Therapeutic Exercise,Balance Retraining,Post Op Education, Discharge Planning,Hot or Cold Pack,Neuromuscular Re-ed, Coordination Retraining,Manual Therapy Other Recommendations and Next Treatment ambulation, transfers Focus Recommendations To Nursing Amount of Assist Needed 2 Person Assist Discharge Recommendations PT Discharge Recommendations SNF Rehab
[2019-07-15 15:38] VITALS: BP 129/66; PULSE 93; RESP 16; TEMP 36.8; O2SAT 92
[2019-07-15 19:47] VITALS: BP 114/51; PULSE 94; RESP 16; TEMP 36.8; O2SAT 92
[2019-07-15] MEDS: SENNOSIDES 8.6 MG TABLET 17.2 MG PO (20:04)
[2019-07-15] MEDS: PRAMIPEXOLE 0.25 MG TABLET 0.5 MG PO (20:06)
[2019-07-16 00:08] VITALS: BP 132/71; PULSE 104; RESP 18; TEMP 36.6; O2SAT 93
[2019-07-16] MEDS: HYDROMORPHONE 2 MG TABLET PO ×4 (00:09→13:02)
[2019-07-16 04:29] VITALS: BP 129/70; PULSE 90; RESP 16; TEMP 36.6; O2SAT 94
[2019-07-16 05:17] LABS: Hematocrit 24.8 % (36-46); Hemoglobin 8.4 g/dL (12.0-16.0)
[2019-07-16] MEDS: LEVOTHYROXINE 25 MCG TABLET PO (05:58)
[2019-07-16] MEDS: BISACODYL 10 MG SUPP PR (06:00)
[2019-07-16] MEDS: ONDANSETRON 4 MG/2 ML INJ IV (06:59)
[2019-07-16] MEDS: SODIUM CHLORIDE 0.9% FLUSH 10 ML IV ×2 (06:59→08:47)
--- NOTE | 2019-07-16 07:27 | PC.NURSE ---
CAITIE Peguero notified with [facility] of 8.4 & 24.8 no new order receive. Report to day RN.
--- NOTE | 2019-07-16 07:29 | P.PN_ITS ---
Subjective Subjective Date Patient Seen: 07/16/19 Time Patient Seen: 07:29 Interval history: Denies fever /chills. She was nauseous this morning after using the bathroom. She has not had any vomiting. Pain is 5/10. No shortness of breath or chest pain. Exam Vital Signs (past 8 hours): - 07/16/19 00:08 07/16/19 04:29 Temperature 97.8 F 97.9 F Pulse Rate 104 H 90 Respiratory Rate 18 16 Blood Pressure 132/71 129/70 Pulse Oximetry 93 94 Oxygen Delivery Method Nasal Cannula Oxygen Flow Rate 0 Narrative Exam Narrative: 68-year-old female resting comfortably in bed in no apparent distress. Motor functions intact bilateral lower extremities. Sensation grossly intact to light touch bilateral lower extremities. Dressing is clean, dry and intact. Patient able to roll it easily to her left to look at the low back dressing. Objective Labs Result Diagrams: 07/16/19 04:54 Labs: Laboratory Results - last 24 hr 07/16/19 04:54 Hgb 8.4 L Hct 24.8 L Assessment & Plan Post-op Postoperative Procedures: Procedures Operation Date: 07/13/19 07:45 Actual Procedures Side Surgeon p L2-3, L3-4, L4-5, L5-S1 TLIF w/ posterior instrumentation Artem Wolfe MD Postop day 3. Patient has substantial anemia due to blood loss from surgery and hypotension evening of July 13, 2019. She was given 2 units of packed red blood cells. Patient currently 2 person assist with physical therapy. Physical therapy is recommending halfway facility. Patient will mobilize with physical therapy this morning. Likely discharge to halfway facility this afternoon.
[2019-07-16 08:00] VITALS: BP 138/69; PULSE 88; RESP 15; TEMP 37.5; O2SAT 95
[2019-07-16] MEDS: DOCUSATE 100 MG CAPSULE PO (08:45)
[2019-07-16] MEDS: PANTOPRAZOLE 40 MG TABLET PO (08:46)
[2019-07-16] MEDS: MAGNESIUM HYDROXIDE 30 ML UDC PO (08:46)
[2019-07-16] MEDS: ASCORBIC ACID 500 MG TABLET PO (08:46)
[2019-07-16] MEDS: ACETAMINOPHEN 325 MG TABLET 650 MG PO (08:46)
[2019-07-16] MEDS: SERTRALINE 50 MG TABLET 100 MG PO (08:46)
[2019-07-16] MEDS: buPROPion 100 MG TABLET PO (08:47)
--- NOTE | 2019-07-16 09:02 | PT.IPTN ---
Current Diagnoses Other secondary scoliosis, lumbar region (07/13/19) Spondylolisthesis, lumbar region (07/13/19) Spinal stenosis, lumbar region without neurogenic claudication (07/13/19) Surgery Performed Operation Date: 07/13/19 07:45 Actual Procedures p L2-3, L3-4, L4-5, L5-S1 TLIF w/ posterior instrumentation - Artem Wolfe MD Physical Therapy Treatment Note M2 PT-IP Current Condition Start: 07/14/19 15:36 Freq: NEEDED Status: Active Protocol: Document 07/14/19 11:21 AB (Rec: 07/14/19 15:50 AB [id number]) Physical Therapy Current Condition Current Condition Evaluation Date 07/14/19 Treatment Diagnosis s/p L3-S1 posterior fusion/ lami; difficulty in walking Onset Date 07/13/2019 Precautions Lumbar Precautions Log Roll,No Twisting,Limit Bending,Lifting Restriction of 10 lbs,Gait Belt above Incisional Area M3 PT-IP Subjective Start: 07/14/19 15:36 Freq: NEEDED Status: Active Protocol: Document 07/16/19 09:02 CLB (Rec: 07/16/19 11:20 CLB [id number]) Subjective Physical Therapy Visit Type Type Treatment Note Visit Start Time 09:02 Visit Stop Time 09:26 Total Visit Minutes 24 Number of DOOR GLASS INSTALLER Visits 4 Physical Therapy Visit Comments Patient Comments Pt agreeable to work with therapy. Therapy Pain Assessment Pain When Pain Assessed At Rest Pain Present Pain Present Pain Reported Location lowert back Intensity 4 Scale Used Numeric (1 - 10) Pain Management Techniques Re-positioning,Timing of Activity with Medications M4 PT-IP Mobility and Gait Start: 07/14/19 15:36 Freq: NEEDED Status: Active Protocol: Document 07/16/19 09:02 CLB (Rec: 07/16/19 11:20 CLB [id number]) PT-Bed Mobility Assessment Rolling Type of Rolling Roll to Left Level of Assist Contact Guard Assistance,1 Person Assistance Supine to Sit Supine to Sit Minimal Assistance,1 Person Assistance Scooting Scooting to Edge of Bed Standby Assistance PT-Transfer Assessment Sit to and From Stand Sit to and from Stand Minimal Assistance,Moderate Assistance,1 Person Assistance ,Use of Upper Extremities Equipment Transfer Assistive Device Gait Belt,Front Wheeled Walker Orthotic/Prosthetic Devices or Brace: No Transfers Transfer Destination Chair,Toilet Transfer Technique Pt ambulated using FWW. Transfer Ability Level of Assist Minimal Assistance,Moderate Assistance,1 Person Assistance ,Use of Upper Extremities Comments Mobility Comments Pt improving with Log roll and continues to require Min A for sidelying to sitting. Pt able to scoot to EOB SBA with pain increasing with bed mobility then returning to 4/ 10 in sitting. Pt sat on EOB while RN changed dressing on low back. Pt stood requiring Mod A from bed then ambulated to BR. Pt required cues for hip hinging with sitting on toilet and use of wall rail. Once on toilet pt brushed her hair. Pt able to perform own pericare but required assist with pulling up breif. Pt then ambulated in cintron ~75ft CGA. Pt returned to room sitting in chair with c/o mild lightheadedness, BP 137/71 and O2 on RA 94%. Pt left in chair with OT present. Gait Assessment Gait Gait Assistance Required: Contact Guard Assist,1 Person Assist Distance (Feet) 75 Able to Maintain Weight Bearing Status Yes During Gait Assistive Devices Assistive Device Gait Belt,Front Wheeled Walker Orthotic/Prosthetic Devices or Brace: No Gait Deviations General Gait Pattern Antalgic,Decreased Stride Length,Decreased Feet Clearance Factors Limiting Gait Function Factors Limiting Gait Function Decreased Activity Tolerance, Decreased Strength,Limited Range of Motion,Pain,Poor Balance,Poor Safety Awareness Comments Gait Comments Pt increased gait distance to ~75ft with CGA, pt continues to have decreased foot clearance and stride length and requires cues to prevent her from walking too far into walker. Pt wore shoes during ambulation. M5 PT-IP Objective Assessments Start: 07/14/19 15:36 Freq: NEEDED Status: Active Protocol: Document 07/14/19 11:21 AB (Rec: 07/14/19 15:50 AB [id number]) Orientation Orientation/Cognition Level of Alertness Alert Orientation Name,Place,Situation Safety Awareness Decreased Safety Awareness Gross Range of Motion Lower Extremity ROM Assessment Within Functional Limits Strength Lower Extremity Strength Assessment Bilaterally Impaired Hip 3-/5 Knee 3+/5 Coordination Assessment Gross Coordination Gross Coordination WNL Sensation Assessment Sensation Gross Sensation WNL Muscle Tone Muscle Tone WNL Yes M6 PT-IP Treatment Start: 07/14/19 15:36 Freq: NEEDED Status: Active Protocol: Document 07/15/19 14:47 CLB (Rec: 07/15/19 15:43 CLB [id number]) Physical Therapy Treatment Exercises Exercises Ankle Pumps Other Treatments Other Treatment Performed placed SCD's on bilateral LE's . M7 PT-IP Assessment and Plan Start: 07/14/19 15:36 Freq: NEEDED Status: Active Protocol: Document 07/16/19 09:02 CLB (Rec: 07/16/19 11:20 CLB [id number]) PT Summary Assessment and Plan Summary Impairments Pain,ROM,Strength,Balance, Coordination,Sensation,Tone, Cognition,Bed Mobility, Transfers,Gait,Activity Tolerance Assessment Summary Pt with improved activity tolerance able to increase gait distance to ~75ft with CGA without knee buckling. Pt continues to require Min A for sit<>stand and cues for hand placement to push off of bed rather than walker. Pt would benefit from SNF rehab to increase activity tolerance, functional mobility and independence. Goals Bed Mobility Goal Standby Assistance Transfer Goal Standby Assistance,Front Wheeled Walker Gait Goal Standby Assistance,Front Wheel Walker Gait Distance 100 Other Goals up/down 2 steps using cane/BARREL LOADER min A Days to Meet Goals 10 Frequency of Treatment Frequency Of Treatment Twice a Day Treatment Plan Physical Therapy Treatment Plan Bed Mobility Training,Transfer Training,Gait Training, Therapeutic Exercise,Balance Retraining,Post Op Education, Discharge Planning,Hot or Cold Pack,Neuromuscular Re-ed, Coordination Retraining,Manual Therapy Other Recommendations and Next Treatment ambulation, transfers Focus Recommendations To Nursing Amount of Assist Needed 1 Person Assist Discharge Recommendations PT Discharge Recommendations SNF Rehab
--- NOTE | 2019-07-16 10:05 | OT.IP.TRT ---
Current Diagnoses Other secondary scoliosis, lumbar region (07/13/19) Spondylolisthesis, lumbar region (07/13/19) Spinal stenosis, lumbar region without neurogenic claudication (07/13/19) Surgery Performed Operation Date: 07/13/19 07:45 Actual Procedures p L2-3, L3-4, L4-5, L5-S1 TLIF w/ posterior instrumentation - Artem Wolfe MD Occupational Therapy Treatment Note M2 OT-IP Current Condition Start: 07/15/19 09:59 Freq: Status: Active Protocol: Document 07/15/19 10:00 [facility] (Rec: 07/15/19 10:53 [facility] [id number]) Occupational Therapy Current Condition Current Condition Evaluation Date 07/15/19 Treatment Diagnosis s/p L2-3, L3-4, L4-5, L5-S1, TLIF w/posterior instr. Diagnosis Onset Date 07/13/19 Post Operative Precautions Lumbar Precautions Log Roll,No Twisting,Limit Bending,Lifting Restriction of 10 lbs,Gait Belt above Incisional Area Weight Bearing Status Weight Bearing Status Weight Bear as Tolerated M3 OT- IP Subjective and Pain Start: 07/15/19 09:59 Freq: Status: Active Protocol: Document 07/16/19 10:08 [facility] (Rec: 07/16/19 10:22 [facility] [id number]) OT- Subjective Occupational Therapy Visit Type Type Treatment Note Visit Start Time 09:20 Visit Stop Time 10:05 Total Visit Minutes 45 Occupational Therapy Visit Comments Patient Comments Pt willing to shower after seeing INSTRUCTOR [place]. Patient/Caregiver Goals To get stronger and be independent to be able to care for herself. OT Pain Assessment Pain When Pain Assessed At Rest Pain Present Pain Present Denied Pain M4 OT- IP ADL's Start: 07/15/19 09:59 Freq: Status: Active Protocol: Document 07/16/19 10:08 [facility] (Rec: 07/16/19 10:22 [facility] [id number]) OT OFZ-Sikz-Cagjwvl Comments OT Self-Feeding Comments Pt not having much appetite to eat, mainly just drinking smoothies. OT ADL-Dressing General Eval Upper Body Dressing Ability Independent Lower Body Dressing Ability Maximum Assistance Comments OT Dressing Comments Due to pt getting tired from activity of showering and needing more assist for LB dressing assist for shoes and to help get brief over her feet initially and ARCHIE for balance while pulling up brief over her hips. OT ADL-Toileting General Evaluation Toileting Ability Minimal Assistance Areas Needing Assistance Manage Clothing Comments OT Toileting Comments Due to decreased balance ARCHIE. Pt's urine noted oily with smell therefore notified nursing to come to look at the urine. ICU nurse came in and also able to pass information to pt's nurse. OT ADL-Bathing Bathing Type Bathing Type Shower General Evaluation Bathing Ability Moderate Assistance Areas Needing Assistance Wash/Dry Back,Wash/Dry Lower Extremities Comments OT Bathing Comments Pt needing assist for back and feet and suggested at home to use long handled brush or to assist . M6 OT- IP Functional Cognition Start: 07/15/19 09:59 Freq: Status: Active Protocol: Document 07/16/19 10:08 [facility] (Rec: 07/16/19 10:22 [facility] [id number]) Cognitive Factors Limiting Selfcare Function Cognitive Ability Level of Alertness Alert Patient Orientation Name,Place,Situation Attention Span Ability Capable of Focused Attention, Capable of Sustained Attention Ability to Follow Commands Able to Follow One Step Commands Memory Description Short Term Impaired Safety Awareness Decreased Ability to Apply Precautions,Underestimates Need for Assistance Cognitive Comments Cognitive Assessment Comments Pt still needing reminders for hand placement to push up from surfaces and before sitting down to reach back with her hands. M7 OT- IP Mobility and Balance Start: 07/15/19 09:59 Freq: Status: Active Protocol: Document 07/16/19 10:08 [facility] (Rec: 07/16/19 10:22 [facility] [id number]) OT- Bed Mobility Assessment Sit to Supine Sit to Supine Assist Moderate Assistance Scooting Scooting to Edge of Bed Contact Guard Assistance OT-Transfer Assessment Sit to and From Stand Sit to and from Stand Contact Guard Assistance, Minimal Assistance Transfers Transfer Ability Minimal Assistance Technique Transfer Destination Bed,Chair,Shower Stall,Toilet Devices Transfer Assistive Devices Gait Belt,Front Wheeled Walker Comments Mobility Comments Pt needing assist to help get legs back into the bed. Pt at times still has right knee buckling when up on her feet with FWW and needing ARCHIE, more assist when stepping over the threshold of the shower. OT- Balance Assessment Sitting Balance and Reactions Static Sitting Balance Ability Normal Dynamic Sitting Balance Ability Good Standing Balance and Reactions Static Standing Balance Ability Fair M8 OT- IP Objective Assessments Start: 07/15/19 09:59 Freq: Status: Active Protocol: Document 07/15/19 10:00 [facility] (Rec: 07/15/19 10:53 [facility] [id number]) OT Gross Range of Motion Upper Extremity Range of Motion Assessment Within Functional Limits OT Strength Upper Extremity Strength Assessment Within Functional Limits OT-Muscle Tone Assessment Muscle Tone WNL No M9 OT- IP Assessment and Plan Start: 07/15/19 09:59 Freq: Status: Active Protocol: Document 07/16/19 10:08 [facility] (Rec: 07/16/19 10:22 [facility] [id number]) OT Summary Assessment and Plan Potential Rehabilitation Potential Good Analytic Complexity at Evaluation Low Summary OT Impairments Balance,Functional Cognition, Functional Mobility,Dressing, Toileting,Bathing,Toilet Transfers,Shower Transfers, Activity Tolerance Progress Towards Goals Progressing Toward Goals Assessment Summary Pt improved activity tolerance and able to assist with showering but did get tired and needing more assist with dressing. Pt looking to go to skilled rehab when medically ready Hgb 8.4, Hct 24.4. Goals Grooming Goal Independent Dressing Goal Standby Assistance Toileting Goal Standby Assistance Bathing Goal Minimal Assistance Toilet Transfer Goal Contact Guard Assistance Shower Transfer Goal Minimal Assistance Patient/Caregiver Education Goal Demonstrate Post-Op Precautions,Caregiver Independent Assisting Patient Days to Meet Goals 4 Frequency of Treatment Frequency Of Treatment Once a Day Treatment Plan OT Treatment Plan ADL Training,Functional Mobility,Patient/Family Education,Discharge Planning Discharge Recommendations OT Discharge Recommendations [facility] Re[facility]
--- NOTE | 2019-07-16 10:11 | CM.DANOTE ---
DCP/Continued: Reviewed chart. Current recommendation is SNF for rehab. Received return call from [facility] and they can accept when patient medically stable. PASRR completed. [facility] reports that will check on whether or not they can provide transport. P: [facility] when medically stable. JASBIR Rascon
[2019-07-16] MEDS: FERROUS GLUCONATE 324 MG TABLET PO (10:38)
--- NOTE | 2019-07-16 11:26 | PC.NURSE ---
Addendum entered by Maura Arnold R.N. 07/16/19 15:25: DC/TSF - per discussion with Stephani in , pt is to transport privately to [facility] in [place], given dilaudid 2mg po after lunch, hep lock dc'd, pt dressed by OT after shower, pt did have x 2 small bm's this am, belongings gathered, including clothing, shoes, bag, cell phone, principal systems architect, tablet, alegria, glasses, suitcase, given the packet info with scripts to spouse to provide to SNF staff, tsf to and escorted by agriscience teacher to spouse's car, report called to Devi at [facility]. Original Note: AM NOTE - pt is drowsy, awakens for vitals and breakfast, states pain 4 on scale 0/10, discussed medications, dosages and timing, given 650mg po tylenol w/breakfast, discussed constipation and narcotics, added mom this am, denies nausea, enc freq use IS, later up dangle position w/phys therapy, coversite w/shadow drainage removed, parallel stapled incisions w/o redness or drainage, dsg replaced, ambul and showered w/OT, declines chair, ret to bed, discussed pain mgt and pt comfortable.
[2019-07-16 12:05] VITALS: BP 107/62; PULSE 84; RESP 17; TEMP 37.5; O2SAT 93
--- NOTE | 2019-07-16 14:01 | CM.DANOTE ---
DCP/Received notification that patient medically stable for discharge today. Patient has been accepted at [facility] in [place]. Asked STEVEN/Noelle to fax clinical, orders, and PASRR to facility. She is agreeable. Per [facility] intake enrollment eligibility representative they do not provide transportation to the facility. Nor do they pay for cabulance. SITE SURVEYOR met with patient and spouse. Spouse in agreement to provide transportation to [facility]. Facility aware that family will be providing transport. RN updated and given number to call report. P: [facility] in [place] today via private automobile. JASBIR Rascon
--- NOTE | 2019-07-16 14:06 | CM.DPC ---
DCP Cont: Faxed discharge packet (signed meds, discharge summary, PASRR and SNF order) to [facility] at fax # [phone]. PASRR scanned in. Fax confirmation scanned in. Noelle Welch, Care Market Development Specialist
--- NOTE | 2019-07-16 14:59 | CM.DPC ---
DCP Cont: Faxed H&P to [facility] at fax # [phone] as requested. Fax confirmation scanned in. Noelle Welch, [facility]
--- NOTE | 2019-07-17 09:35 | PM.DS.1 ---
History of Present Illness History of Present Illness Date Patient Seen: 07/16/19 Time Patient Seen: 12:27 Chief complaint: Tranlaminar interbody Fusion/Laminotomy Narrative: No nausea. Otherwise without complaints. Discharge Providers Provider Date of admission: 07/13/19 06:14 Discharge Date: 07/16/19 Primary care physician: Shady Osuna DO Consults: 07/13/19 14:46 Consult to Occupational Therapy Evaluate & Treat Comment: Physician Instructions: Evaluate and treat Consult to Physical Therapy Evaluate & Treat Comment: Physician Instructions: Evaluate and Treat 07/15/19 09:19 Consult to Discharge Planning Routine Comment: Possible SNF placement on Tuesday Discharge provider: Tato Peguero PA-C Summary Hospital Course Discharge Diagnosis: Date of procedure: 07/13/19 Time of procedure: 08:12 Pre-op diagnosis: 1. Lumbar scoliosis 2. Lumbar spondylolisthesis 3. Lumbar spinal stenosis with radiculopathy 4. Lumbar spondylosis with radiculopathy Post-op diagnosis: same Hospital Course: Procedure: 1. L3-4, L4-5, L5-S1 Postero-lateral and posterior interbody fusion 2. L3-4, L4-5, L5-S1 interbody cage placement. 3. L2-3, L3-4, L4-5, L5-S1 decompressive laminectomy with bilateral facetecomies 4. L2-3 posterior lateral fusion 5. L2-3, L3-4, L4-5, L5-S1 Posterior segmental instrumentation 6. [place] of bone marrow from iliac crest 7. Utilization of microsurgical technique and operating microscope Same procedure as scheduled: Yes Indications: Patient has been having chronic back pain and worsening lumbar radiculopathy. Patient failed multiple conservative management with worsening pain weakness and numbness in her lower extremity. Patient has been having difficulty performing activity of daily living. After discussing risks benefits of treatment options, patient elected proceed with surgery. Surgeon: Artem Wolfe Butcher Supervisor: Kim Roe Click Yes if Unassisted: No Anesthesia Type: General Operative Notes Closure Type: primary Specimen(s): none sent Prosthetic devices, grafts, tissues, transplants, or devices: Globus revolve screws, RIse cages Applied: catheter Estimated Blood Loss (mL): 500 Blood products transfused: none Recieved 2 units or PRBCs for blood loss from surgery. Patient doing well and will be discharged to SNF today. Status at Discharge Cognitive/behavioral status at discharge: at baseline, oriented Functional status at discharge: uses cane/walker Overall status at discharge: patient is progressing back to baseline Time Spent with Patient Time spent: Less than 30 minutes Exam Vital Signs (past 8 hours): Oxygen Delivery Method Room Air Oxygen Flow Rate 0 Narrative Exam Narrative: NAD Objective Labs Result Diagrams: 07/16/19 04:54 Discharge Plan Discharge Plan Patient Disposition: SNF Transfer to: [facility] Under care of provider: Dr. Wolfe Discharge comment: DC to SNF in stable condition Discharge orders & Medications Prescriptions: New sumatriptan succinate [Imitrex] 25 mg Tablet 25 mg PO PRN PRN (Reason: Migraine Headache) Qty: 10 RF: 0 hydromorphone 2 mg Tablet 2 mg PO Q3H PRN (Reason: Pain, Severe (7-10)) Qty: 40 RF: 0 ondansetron 4 mg Tablet,Disintegrating 4 mg sublingual Q6HR PRN (Reason: Nausea) Qty: 30 RF: 0 hydromorphone [Dilaudid] 2 mg tablet 2 mg PO Q4H PRN (Reason: pain) Qty: 45 RF: 0 Continued tizanidine 2 mg Tablet 2 mg PO BEDTIME PRN (Reason: Muscle spasms) RF: 0 sumatriptan succinate 25 mg Tablet 25 mg PO PRN PRN (Reason: Migraine Headache) RF: 0 alendronate [Fosamax] 70 mg Tablet 70 mg PO QWEEK RF: 0 sertraline 100 mg Tablet 100 mg PO BID RF: 0 bupropion HCl 100 mg Tablet 100 mg PO BID RF: 0 omeprazole 20 mg Capsule,Delayed Release(Dr/Ec) 40 mg PO DAILY RF: 0 acetaminophen 325 mg Tablet 650 mg PO Q6HR PRN (Reason: Pain, Mild (1-3)) Qty: 30 RF: 0 ascorbic acid (vitamin C) [Vitamin C] 500 mg Tablet 500 mg PO BID Qty: 60 RF: 0 ferrous gluconate 324 mg (38 mg iron) Tablet 324 mg PO BID Qty: 60 RF: 0 pramipexole 0.25 mg Tablet 0.5 mg PO BEDTIME RF: 0 levothyroxine 25 mcg Capsule 25 mcg PO DAILY RF: 0 Discontinued meloxicam 15 mg Tablet 15 mg PO DAILY RF: 0 hydrocodone-acetaminophen 10-325 mg Tablet 1 tab PO BID RF: 0 Follow up/Referrals: Shady Osuna DO [Primary Care Provider] - Artem Wolfe MD [Physician] - (2 wks) Discharge Health Status Multidrug resistant organism: No MDRO Diet/Activity/Treatments Diet: Diet as Tolerated Liquid consistency: Normal/Thin Food texture: Regular Activity: Limit bending, lifting, twisting Cold/Heat Therapy: ice as needed Skin/Wound/Dressing Care Report to your healthcare provider any signs of infection, such as:: chills, fever, increased pain, unusual drainage and unusual redness Dressing: keep clean and dry [facility] Reason for rehabilitation: Post-operative therapy Rehab type: Physical therapy and Occupational therapy Restrictions to mobility: limit bending, lifting, twisting Visit Report/Discharge Packet Instructions: DI for Prescription Opioid Use, DI for Transforaminal Lumbar Interbody Fusion Stand Alone Forms: Surgery Discharge Discharge Data Primary Care Provider: Shady Osuna Discharges patient from system. Discharge Date/Time: 07/16/19 14:15
== END 2019-07-16 14:15 | DRG 454 ==
PROVIDERS: Orthopaedic Surgery; Admitting Provider Orthopaedic Surgery Orthopaedic Surgery of the Spine; PCP Family Medicine Adult Medicine; Visit Provider Orthopaedic Surgery Orthopaedic Surgery of the Spine
PROC: 0SG10AJ Fusion of 2 or more Lumbar Vertebral Joints with Interbody Fusion Device, Posterior Approach, Anterior Column, Open Approach (ICD-10-PCS; principal; 2019-07-13 07:45)
DX: M41.86 Other forms of scoliosis, lumbar region (principal); D62 Acute posthemorrhagic anemia; M47.26 Other spondylosis with radiculopathy, lumbar region; M51.26 Other intervertebral disc displacement, lumbar region; M48.061 Spinal stenosis, lumbar region without neurogenic claudication; M43.16 Spondylolisthesis, lumbar region; F32.9 Major depressive disorder, single episode, unspecified
CPT/HCPCS: 36415; 36430; 72100; 76000; 85014; 85018; 86850; 86900; 86901; 97110; 97116; 97162; 97165; 97530; 97535; C1776; P9016; C9290; J0131; J0690; J1100; J1170; J2250; J2405; J2704; J3010